=== PATIENT | male | born 1955 | race Caucasian/White ===

== ENCOUNTER → 2020-10-28 | Outpatient (CLI) | payer MEDICARE ==
--- NOTE | 2020-10-28 11:39 | XR ---
EXAMINATION TYPE: XR chest 2V DATE OF EXAM: 10/28/2020 COMPARISON: Chest x-ray April 27, 2017 HISTORY: Productive cough. TECHNIQUE: Frontal and lateral views of the chest are obtained. FINDINGS: There is mild chronic parenchymal changes bilaterally without suspicious new focal air spa ce opacity, pleural effusion, or pneumothorax seen. The cardiac silhouette size is within normal beltran its with atherosclerotic change aortic knob. Slight underlying scoliotic curvature. IMPRESSION: Chronic changes without acute pulmonary process.
== END | disposition home or self-care (01) ==
LOC: RADXRMAIN 11:22
PROVIDERS: ATTEND Internal Medicine
DX: R05 Cough (principal)
CPT/HCPCS: 71046

== ENCOUNTER 2020-11-16 18:48 | Emergency (ER) | payer MEDICARE ==
[2020-11-16] MEDS ORDERED: DIPH,PERTUS(ACELL)TETVAC-LF 0.5 ML VIAL IM ONE (19:35)
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
--- NOTE | 2020-11-16 20:17 | CT ---
EXAMINATION TYPE: CT brain cspine wo con DATE OF EXAM: 11/16/2020 COMPARISON: None available. HISTORY: Fall today with injury and possible LOC CT DLP: 1322.7 mGycm Automated exposure control for dose reduction was used. TECHNIQUE: CT scan of the head and cervical spine are performed without contrast. FINDINGS: There is small right temporal subdural hematoma, tracking along the tentorial leaflet. As sociated minimal pneumocephalus without obvious displaced calvarial fracture seen. No significant mas s effect, or midline shift identified. The ventricles and sulci are within normal limits in size. T he globes are intact and the visualized sinuses are clear. Cervical spine is visualized in its entirety from C1 through upper thoracic levels and demonstrates s atisfactory alignment without evidence of acute fracture or dislocation. Prevertebral soft tissue ap pears within normal limits. The C1-C2 articulation is unremarkable. IMPRESSION: Small right sided subdural hematoma with minimal pneumocephalus. No definitive calvarial fracture see n. No acute abnormality of the cervical spine. Critical finding was reported to caring physician by me at time of dictation.
--- NOTE | 2020-11-16 20:22 | XR ---
Result: History: Pain. Comparison: None available. Technique: Frontal, lateral and oblique views of the left elbow. Findings: Bone mineralization is appropriate for age. No acute fracture or dislocation is seen. The visualized osseous structures are in anatomic alignmen t. There are scattered mild degenerative changes. There is no significant elbow joint effusion. Impression: No acute fracture or dislocation.
--- NOTE | 2020-11-16 20:26 | XR ---
Result: Clinical History: Pain. Comparison: Chest radiographs 10/28/2020. Technique: 3 views of the left shoulder. Findings: The bone mineralization is appropriate for age. There is acute mildly displaced fracture of the left distal clavicle with possible intra-articular ex tension. No significant malalignment of the acromioclavicular joint. No evidence of dislocation. The visualized lung is clear. Impression: Left distal clavicle fracture.
[2020-11-16] MEDS ORDERED: MORPHINE SULFATE 4 MG/ML SYRINGE IVP STA ×2 (20:34→22:23)
[2020-11-16] MEDS ORDERED: ONDANSETRON 4 MG/2 ML VIAL IVP STA (20:34)
[2020-11-16 21:41] VITALS: RESP 18
[2020-11-16] MEDS ORDERED: cefTRIAXone IN SWFI 1,000 MG/10 ML SYRINGE IVP STA (22:05)
[2020-11-16] MEDS ORDERED: levETIRAcetam IV 1,000 MG in SALINE 1 100ML.BAG IVPB STA (22:05)
[2020-11-16 22:21] VITALS: BP 128/78; PULSE 82
[2020-11-16 22:51] VITALS: TEMP 98.2
== END 2020-11-16 23:01 | disposition other institution (70) ==
LOC: EC 18:48
DX: S42.032A Displaced fracture of lateral end of left clavicle, initial encounter for closed fracture (principal); S06.5X0A Traumatic subdural hemorrhage without loss of consciousness, initial encounter; S50.312A Abrasion of left elbow, initial encounter; J44.9 Chronic obstructive pulmonary disease, unspecified; I10 Essential (primary) hypertension; Z88.6 Allergy status to analgesic agent; Z79.899 Other long term (current) drug therapy; Z20.822 Contact with and (suspected) exposure to COVID-19; Z98.890 Other specified postprocedural states; V00.831A Fall from motorized mobility scooter, initial encounter; Y93.55 Activity, bike riding
CPT/HCPCS: 87635; 73030; 73080; 72125; 70450; 90715; 99285; 96365; 96375; 96376; 96372; J2270; J2405; J0696; J1953

== ENCOUNTER 2021-11-28 15:31 | Emergency (ER) | payer MEDICARE ==
[2021-11-28 16:34] VITALS: BP 133/92; PULSE 106; RESP 18; TEMP 98.1
--- NOTE | 2021-11-28 17:08 | ED ---
ENT HPI - General Chief complaint: Dental/Oral Stated complaint: spots on tongue Time Seen by Provider: 11/28/21 16:50 Source: patient Mode of arrival: ambulatory Limitations: no limitations - History of Present Illness Initial comments: Patient is a 66-year-old male who presents to the emergency department for evaluation of bumps on his tongue. Patient states he noticed the bumps on the back of his tongue last week. States they do not hurt. Denies fever, chills, tongue swelling, shortness of breath, chest pain, and other concerns. - Related Data Home Medications Medication Instructions Recorded Confirmed HYDROcodone/APAP 7.5-325MG [[place] 1 tab PO BID 01/30/14 11/16/20 7.5] Morphine Sulfate [Ms Contin] 60 mg PO Q12H 11/29/15 11/16/20 Metoprolol Succinate (ER) [Toprol 50 mg PO DAILY 04/27/17 11/16/20 Xl] Albuterol Sulfate [Ventolin HFA] 2 puff INHALATION RT-QID PRN 11/16/20 11/16/20 traZODone HCL 100 mg PO HS 11/16/20 11/16/20 Previous Rx's Medication Instructions Recorded Amoxicillin/Potassium Clav 1 tab PO Q12HR 7 Days #14 tab 09/28/21 [Augmentin 875-125 Tablet] Allergies Allergy/AdvReac Type Severity Reaction Status Date / Time celecoxib [From Celebrex] Allergy Swelling Verified 11/28/21 16:34 Review of Systems ROS Statement: Those systems with pertinent positive or pertinent negative responses have been documented in the HPI. ROS Other: All systems not noted in ROS Statement are negative. Past Medical History Past Medical History: COPD, Hypertension, Osteoarthritis (OA) Additional Past Medical History / Comment(s): chronic back pain-L4 degeneration History of Any Multi-Drug Resistant Organisms: None Reported Past Surgical History: Orthopedic Surgery Additional Past Surgical History / Comment(s): clavicle Past Anesthesia/Blood Transfusion Reactions: No Reported Reaction Past Psychological History: No Psychological Hx Reported Smoking Status: Never smoker Past Alcohol Use History: None Reported Past Drug Use History: None Reported - Past Family History Mother Family Medical History: Diabetes Mellitus Brother(s) Family Medical History: Diabetes Mellitus General Exam Limitations: no limitations General appearance: alert, in no apparent distress Head exam: Present: atraumatic, normocephalic, normal inspection Eye exam: Present: normal appearance, PERRL, EOMI. Absent: scleral icterus, conjunctival injection, periorbital swelling ENT exam: Present: normal oropharynx (prominent taste buds on back of tongue ), mucous membranes moist Neck exam: Present: normal inspection, full ROM. Absent: tenderness Respiratory exam: Present: normal lung sounds bilaterally. Absent: respiratory distress, wheezes, rales, rhonchi, stridor Cardiovascular Exam: Present: regular rate, normal rhythm, normal heart sounds. Absent: systolic murmur, diastolic murmur, rubs, gallop, clicks Neurological exam: Present: alert, oriented X3, CN II-XII intact Psychiatric exam: Present: normal affect, normal mood Course Vital Signs 11/28/21 16:32 Temperature 98.1 F Pulse Rate 106 H Respiratory 18 Rate Blood Pressure 133/92 O2 Sat by Pulse 96 Oximetry Medical Decision Making - Medical Decision Making This is a 66-year-old male who presents for evaluation of bumps on his tongue. Thorough history and examination were performed. Patient's throat and mouth inspected thoroughly. There are prominent taste buds located on the back of patient's tongue. The tongue is uniform in color with no overlying ab normalities. Patient reassured that the bumps on his tongue are taste buds. He will be discharged with instruction to follow-up with his primary care provider in one to 2 days. Return parameters discussed. Patient verbalizes understanding and is agreeable to this plan. Dr. Bowman is my attending. Disposition Clinical Impression: Tongue symptom Disposition: HOME SELF-CARE Condition: Good Additional Instructions: Please follow-up with primary care provider in one to 2 days. Return to the emergency department if you experience new, concerning, or worsening symptoms. Is patient prescribed a controlled substance at d/c from ED?: No Referrals: Aamir Parker MD [Primary Care Provider] - 1-2 days Time of Disposition: 17:08
== END 2021-11-28 17:18 | disposition home or self-care (01) ==
LOC: EC 15:31
DX: K13.70 Unspecified lesions of oral mucosa (principal); J44.9 Chronic obstructive pulmonary disease, unspecified; I10 Essential (primary) hypertension; Z88.6 Allergy status to analgesic agent
CPT/HCPCS: 99282

== ENCOUNTER 2021-11-28 20:56 | Inpatient (IN) | payer MEDICARE ==
[2021-11-28 21:16] LABS: Glucose,Whole Blood 553 mg/dL (70-110)
[2021-11-28 21:16] LABS: Glucose,Whole Blood 538 mg/dL (70-110)
[2021-11-28 21:58] LABS: Basophils # (A) 0.1 k/uL (0-0.2); Basophils % (A) 1 %; Eosinophils % (A) 0 %; HGB 15.5 gm/dL (13.0-17.5); Lymphocytes # (A) 1.1 k/uL (1.0-4.8); Lymphocytes % (A) 8 %; MCH 28.5 pg (25.0-35.0); MCHC 33.6 g/dL (31.0-37.0); MCV 84.6 fL (80.0-100.0); Mean Platelet Volume 8.1; Monocytes # (A) 0.5 k/uL (0-1.0); Monocytes % (A) 4 %; Neutrophils # (A) 11.7 k/uL (1.3-7.7); Neutrophils % (A) 86 %; Platelet Count 169 k/uL (150-450); RBC 5.44 m/uL (4.30-5.90); RDW 12.1 % (11.5-15.5); WBC 13.6 k/uL (3.8-10.6)
[2021-11-28] MEDS ORDERED: HYDROcodone/APAP 7.5-325MG 1 EACH TAB PO ONE (22:08)
[2021-11-28 22:11] LABS: ALT 47 U/L (4-49); AST 57 U/L (17-59); African American GFR (CKD) >90 (>60 ml/min/1.73 sqM); Albumin 4.3 g/dL (3.5-5.0); Alkaline Phosphatase 70 U/L (38-126); Anion Gap 18 mmol/L; Blood Urea Nitrogen 18 mg/dL (9-20); Calcium 8.4 mg/dL (8.4-10.2); Carbon Dioxide 18 mmol/L (22-30); Chloride 88 mmol/L (98-107); Non-African American GFR(CKD) >90 (>60 ml/min/1.73 sqM); Potassium 4.1 mmol/L (3.5-5.1); Sodium 124 mmol/L (137-145); Total Bilirubin 1.2 mg/dL (0.2-1.3); Total Protein 6.8 g/dL (6.3-8.2)
--- NOTE | 2021-11-28 22:11 | ED ---
Altered Mental Status HPI - General Chief Complaint: Altered Mental Status Stated Complaint: RECHECK Time Seen by Provider: 11/28/21 21:20 Source: patient, family Mode of arrival: wheelchair Limitations: no limitations - History of Present Illness Initial Comments: patient is a 66-year-old man who presents with complaint that he "can't stand up". Patient states that he has been having difficulty with balance this been going on for a week now. He is not note any inciting factors. He did not have any injury a week ago. He denies any focal weakness. No change in vision, speech MD Complaint: other Onset/Timin -: week(s) Consistency of Symptoms: constant Associated Symptoms: denies other symptoms - Related Data Home Medications Medication Instructions Recorded Confirmed HYDROcodone/APAP 7.5-325MG [[place] 1 tab PO BID 01/30/14 11/28/21 7.5-325] Morphine Sulfate [Ms Contin] 60 mg PO Q12H 11/29/15 11/28/21 Metoprolol Succinate (ER) [Toprol 50 mg PO DAILY 04/27/17 11/28/21 XL] traZODone HCL 100 mg PO HS 11/16/20 11/28/21 Previous Rx's Medication Instructions Recorded Amoxic-Pot Clav 875-125Mg 1 tab PO Q12HR 7 Days #14 tab 12/05/21 [Augmentin 875-125] INSULIN ASPART (NovoLOG) [NovoLOG 3 unit SQ ACHS 30 Days #5 each 12/05/21 (formulary)] Insulin Detemir (Levemir) [Levemir] 15 unit SQ DAILY 30 Days #5 each 12/05/21 Fluconazole [Diflucan] 100 mg PO DAILY 7 Days #7 tablet 12/07/21 Allergies Allergy/AdvReac Type Severity Reaction Status Date / Time celecoxib [From Celebrex] Allergy Swelling Verified 11/28/21 22:40 Review of Systems ROS Statement: Those systems with pertinent positive or pertinent negative responses have been documented in the HPI. ROS Other: All systems not noted in ROS Statement are negative. Constitutional: Denies: fever, chills, weakness Eyes: Denies: vision change Respiratory: Denies: cough, dyspnea, wheezes Cardiovascular: Denies: chest pain, palpitations Gastrointestinal: Denies: abdominal pain, vomiting, diarrhea Genitourinary: Denies: dysuria, hematuria Musculoskeletal: Denies: back pain Skin: Denies: rash Neurological: Reports: vertigo. Denies: headache, weakness, numbness, paresthesias Past Medical History Past Medical History: COPD, Hypertension, Osteoarthritis (OA) Additional Past Medical History / Comment(s): chronic back pain-L4 degeneration History of Any Multi-Drug Resistant Organisms: None Reported Past Surgical History: Orthopedic Surgery Additional Past Surgical History / Comment(s): clavicle Past Anesthesia/Blood Transfusion Reactions: No Reported Reaction Past Psychological History: No Psychological Hx Reported Smoking Status: Never smoker Past Alcohol Use History: None Reported Past Drug Use History: None Reported - Past Family History Mother Family Medical History: Diabetes Mellitus Brother(s) Family Medical History: Diabetes Mellitus General Exam Limitations: no limitations General appearance: alert, in no apparent distress Head exam: Present: atraumatic, normocephalic Eye exam: Present: normal appearance, PERRL, EOMI. Absent: scleral icterus, c onjunctival injection, nystagmus Neck exam: Present: normal inspection, full ROM Respiratory exam: Present: normal lung sounds bilaterally. Absent: respiratory distress, wheezes, rales, rhonchi, stridor Cardiovascular Exam: Present: regular rate, normal rhythm, normal heart sounds. Absent: systolic murmur, diastolic murmur, rubs, gallop GI/Abdominal exam: Present: soft. Absent: distended, tenderness, guarding, rebound, rigid, mass Extremities exam: Present: normal inspection, normal capillary refill. Absent: pedal edema, calf tenderness Back exam: Present: normal inspection. Absent: CVA tenderness (R), CVA tenderness (L) Neurological exam: Present: alert, oriented X3, CN II-XII intact. Absent: motor sensory deficit Skin exam: Present: warm, dry, intact, normal color. Absent: rash Course Vital Signs 11/28/21 11/29/21 11/29/21 21:10 00:50 03:40 Temperature 99.9 F H Pulse Rate 141 H 75 103 H Respiratory 20 18 18 Rate Blood Pressure 132/79 128/92 151/88 O2 Sat by Pulse 94 L 97 97 Oximetry 11/29/21 11/29/21 06:53 12:58 Temperature Pulse Rate 108 H 96 Respiratory 18 18 Rate Blood Pressure 133/89 129/84 O2 Sat by Pulse 95 98 Oximetry Medical Decision Making - Medical Decision Making Patient's 66-year-old man presenting with feeling of being off balance and difficulty ambulating. He is found to have significant hyperglycemia and appears to have pneumonia on the chest x-ray. Patient started on antibiotics, fluids, insulin and be admitted for further evaluation and treatment. - Lab Data Result diagrams: 12/03/21 06:25 12/05/21 10:08 Lab Results 11/28/21 11/28/21 11/28/21 Range/Units 21:12 21:15 21:35 WBC 13.6 H (3.8-10.6) k/uL RBC 5.44 (4.30-5.90) m/uL Hgb 15.5 (13.0-17.5) gm/dL Hct 46.0 (39.0-53.0) % MCV 84.6 (80.0-100.0) fL MCH 28.5 (25.0-35.0) pg MCHC 33.6 (31.0-37.0) g/dL RDW 12.1 (11.5-15.5) % Plt Count 169 (150-450) k/uL MPV 8.1 Neutrophils % 86 % Lymphocytes % 8 % Monocytes % 4 % Eosinophils % 0 % Basophils % 1 % Neutrophils # 11.7 H (1.3-7.7) k/uL Lymphocytes # 1.1 (1.0-4.8) k/uL Monocytes # 0.5 (0-1.0) k/uL Eosinophils # 0.0 (0-0.7) k/uL Basophils # 0.1 (0-0.2) k/uL PT (9.0-12.0) sec INR (<1.2) APTT (22.0-30.0) sec Sodium (137-145) mmol/L Potassium (3.5-5.1) mmol/L Chloride (98-107) mmol/L Carbon Dioxide (22-30) mmol/L Anion Gap mmol/L BUN (9-20) mg/dL Creatinine (0.66-1.25) mg/dL Est GFR (CKD-EPI)AfAm (>60 ml/min/1.73 sqM) Est GFR (CKD-EPI)NonAf (>60 ml/min/1.73 sqM) Glucose (74-99) mg/dL POC Glucose (mg/dL) 553 H 538 H (70-110) mg/dL POC Glu [facility] Tala Menezes Theresa Calcium (8.4-10.2) mg/dL Total Bilirubin (0.2-1.3) mg/dL AST (17-59) U/L ALT (4-49) U/L Alkaline Phosphatase (38-126) U/L Ammonia (<30) umol/L Troponin I (0.000-0.034) ng/mL NT-Pro-B Natriuret Pep pg/mL Total Protein (6.3-8.2) g/dL Albumin (3.5-5.0) g/dL Urine Color Urine Appearance (Clear) Urine pH (5.0-8.0) Ur Specific [place] (1.001-1.035) Urine Protein (Negative) Urine Glucose (UA) (Negative) Urine Ketones (Negative) Urine Blood (Negative) Urine Nitrite (Negative) Urine Bilirubin (Negative) Urine Urobilinogen (<2.0) mg/dL Ur Leukocyte Esterase (Negative) Urine RBC (0-5) /hpf Urine WBC (0-5) /hpf Urine Mucus (None) /hpf Urine Opiates Screen (NotDetected) Ur Oxycodone Screen (NotDetected) Urine Methadone Screen (NotDetected) Ur Propoxyphene Screen (NotDetected) Ur Barbiturates Screen (NotDetected) U Tricyclic Antidepress (NotDetected) Ur Phencyclidine Scrn (NotDetected) Ur Amphetamines Screen (NotDetected) U Methamphetamines Scrn (NotDetected) U Benzodiazepines Scrn (NotDetected) Urine Cocaine Screen (NotDetected) U Marijuana (THC) Screen (NotDetected) Serum Alcohol mg/dL 11/28/21 11/28/21 11/28/21 Range/Units 21:35 21:35 21:35 WBC (3.8-10.6) k/uL RBC (4.30-5.90) m/uL Hgb (13.0-17.5) gm/dL Hct (39.0-53.0) % MCV (80.0-100.0) fL MCH (25.0-35.0) pg MCHC (31.0-37.0) g/dL RDW (11.5-15.5) % Plt Count (150-450) k/uL MPV Neutrophils % % Lymphocytes % % Monocytes % % Eosinophils % % Basophils % % Neutrophils # (1.3-7.7) k/uL Lymphocytes # (1.0-4.8) k/uL Monocytes # (0-1.0) k/uL Eosinophils # (0-0.7) k/uL Basophils # (0-0.2) k/uL PT 12.4 H (9.0-12.0) sec INR 1.2 H (<1.2) APTT 27.2 (22.0-30.0) sec Sodium 124 L (137-145) mmol/L Potassium 4.1 (3.5-5.1) mmol/L Chloride 88 L (98-107) mmol/L Carbon Dioxide 18 L (22-30) mmol/L Anion Gap 18 mmol/L BUN 18 (9-20) mg/dL Creatinine 0.86 (0.66-1.25) mg/dL Est GFR (CKD-EPI)AfAm >90 (>60 ml/min/1.73 sqM) Est GFR (CKD-EPI)NonAf >90 (>60 ml/min/1.73 sqM) Glucose 548 H* (74-99) mg/dL POC Glucose (mg/dL) (70-110) mg/dL POC Glu [facility] ID Calcium 8.4 (8.4-10.2) mg/dL Total Bilirubin 1.2 (0.2-1.3) mg/dL AST 57 (17-59) U/L ALT 47 (4-49) U/L Alkaline Phosphatase 70 (38-126) U/L Ammonia (<30) umol/L Troponin I <0.012 (0.000-0.034) ng/mL NT-Pro-B Natriuret Pep pg/mL Total Protein 6.8 (6.3-8.2) g/dL Albumin 4.3 (3.5-5.0) g/dL Urine Color Urine Appearance (Clear) Urine pH (5.0-8.0) Ur Specific [place] (1.001-1.035) Urine Protein (Negative) Urine Glucose (UA) (Negative) Urine Ketones (Negative) Urine Blood (Negative) Urine Nitrite (Negative) Urine Bilirubin (Negative) Urine Urobilinogen (<2.0) mg/dL Ur Leukocyte Esterase (Negative) Urine RBC (0-5) /hpf Urine WBC (0-5) /hpf Urine Mucus (None) /hpf Urine Opiates Screen (NotDetected) Ur Oxycodone Screen (NotDetected) Urine Methadone Screen (NotDetected) Ur Propoxyphene Screen (NotDetected) Ur Barbiturates Screen (NotDetected) U Tricyclic Antidepress (NotDetected) Ur Phencyclidine Scrn (NotDetected) Ur Amphetamines Screen (NotDetected) U Methamphetamines Scrn (NotDetected) U Benzodiazepines Scrn (NotDetected) Urine Cocaine Screen (NotDetected) U Marijuana (THC) Screen (NotDetected) Serum Alcohol <10 mg/dL 11/28/21 11/28/21 11/29/21 Range/Units 21:35 21:35 00:35 WBC (3.8-10.6) k/uL RBC (4.30-5.90) m/uL Hgb (13.0-17.5) gm/dL Hct (39.0-53.0) % MCV (80.0-100.0) fL MCH (25.0-35.0) pg MCHC (31.0-37.0) g/dL RDW (11.5-15.5) % Plt Count (150-450) k/uL MPV Neutrophils % % Lymphocytes % % Monocytes % % Eosinophils % % Basophils % % Neutrophils # (1.3-7.7) k/uL Lymphocytes # (1.0-4.8) k/uL Monocytes # (0-1.0) k/uL Eosinophils # (0-0.7) k/uL Basophils # (0-0.2) k/uL PT (9.0-12.0) sec INR (<1.2) APTT (22.0-30.0) sec Sodium (137-145) mmol/L Potassium (3.5-5.1) mmol/L Chloride (98-107) mmol/L Carbon Dioxide (22-30) mmol/L Anion Gap mmol/L BUN (9-20) mg/dL Creatinine (0.66-1.25) mg/dL Est GFR (CKD-EPI)AfAm (>60 ml/min/1.73 sqM) Est GFR (CKD-EPI)NonAf (>60 ml/min/1.73 sqM) Glucose (74-99) mg/dL POC Glucose (mg/dL) (70-110) mg/dL POC Glu [facility] ID Calcium (8.4-10.2) mg/dL Total Bilirubin (0.2-1.3) mg/dL AST (17-59) U/L ALT (4-49) U/L Alkaline Phosphatase (38-126) U/L Ammonia 15 (<30) umol/L Troponin I (0.000-0.034) ng/mL NT-Pro-B Natriuret Pep 303 pg/mL Total Protein (6.3-8.2) g/dL Albumin (3.5-5.0) g/dL Urine Color Yellow Urine Appearance Clear (Clear) Urine pH 5.5 (5.0-8.0) Ur Specific [place] 1.030 (1.001-1.035) Urine Protein 1+ H (Negative) Urine Glucose (UA) 4+ H (Negative) Urine Ketones 2+ H (Negative) Urine Blood Moderate H (Negative) Urine Nitrite Negative (Negative) Urine Bilirubin Negative (Negative) Urine Urobilinogen <2.0 (<2.0) mg/dL Ur Leukocyte Esterase Negative (Negative) Urine RBC 1 (0-5) /hpf Urine WBC 1 (0-5) /hpf Urine Mucus Rare H (None) /hpf Urine Opiates Screen Detected H (NotDetected) Ur Oxycodone Screen Not Detected (NotDetected) Urine Methadone Screen Not Detected (NotDetected) Ur Propoxyphene Screen Not Detected (NotDetected) Ur Barbiturates Screen Not Detected (NotDetected) U Tricyclic Antidepress Not Detected (NotDetected) Ur Phencyclidine Scrn Not Detected (NotDetected) Ur Amphetamines Screen Not Detected (NotDetected) U Methamphetamines Scrn Not Detected (NotDetected) U Benzodiazepines Scrn Not Detected (NotDetected) Urine Cocaine Screen Not Detected (NotDetected) U Marijuana (THC) Screen Detected H (NotDetected) Serum Alcohol mg/dL 11/29/21 Range/Units 01:15 WBC (3.8-10.6) k/uL RBC (4.30-5.90) m/uL Hgb (13.0-17.5) gm/dL Hct (39.0-53.0) % MCV (80.0-100.0) fL MCH (25.0-35.0) pg MCHC (31.0-37.0) g/dL RDW (11.5-15.5) % Plt Count (150-450) k/uL MPV Neutrophils % % Lymphocytes % % Monocytes % % Eosinophils % % Basophils % % Neutrophils # (1.3-7.7) k/uL Lymphocytes # (1.0-4.8) k/uL Monocytes # (0-1.0) k/uL Eosinophils # (0-0.7) k/uL Basophils # (0-0.2) k/uL PT (9.0-12.0) sec INR (<1.2) APTT (22.0-30.0) sec Sodium (137-145) mmol/L Potassium (3.5-5.1) mmol/L Chloride (98-107) mmol/L Carbon Dioxide (22-30) mmol/L Anion Gap mmol/L BUN (9-20) mg/dL Creatinine (0.66-1.25) mg/dL Est GFR (CKD-EPI)AfAm (>60 ml/min/1.73 sqM) Est GFR (CKD-EPI)NonAf (>60 ml/min/1.73 sqM) Glucose (74-99) mg/dL POC Glucose (mg/dL) 436 H (70-110) mg/dL POC Glu [facility] ID Melville, Luis Felipe Calcium (8.4-10.2) mg/dL Total Bilirubin (0.2-1.3) mg/dL AST (17-59) U/L ALT (4-49) U/L Alkaline Phosphatase (38-126) U/L Ammonia (<30) umol/L Troponin I (0.000-0.034) ng/mL NT-Pro-B Natriuret Pep pg/mL Total Protein (6.3-8.2) g/dL Albumin (3.5-5.0) g/dL Urine Color Urine Appearance (Clear) Urine pH (5.0-8.0) Ur Specific [place] (1.001-1.035) Urine Protein (Negative) Urine Glucose (UA) (Negative) Urine Ketones (Negative) Urine Blood (Negative) Urine Nitrite (Negative) Urine Bilirubin (Negative) Urine Urobilinogen (<2.0) mg/dL Ur Leukocyte Esterase (Negative) Urine RBC (0-5) /hpf Urine WBC (0-5) /hpf Urine Mucus (None) /hpf Urine Opiates Screen (NotDetected) Ur Oxycodone Screen (NotDetected) Urine Methadone Screen (NotDetected) Ur Propoxyphene Screen (NotDetected) Ur Barbiturates Screen (NotDetected) U Tricyclic Antidepress (NotDetected) Ur Phencyclidine Scrn (NotDetected) Ur Amphetamines Screen (NotDetected) U Methamphetamines Scrn (NotDetected) U Benzodiazepines Scrn (NotDetected) Urine Cocaine Screen (NotDetected) U Marijuana (THC) Screen (NotDetected) Serum Alcohol mg/dL - EKG Data EKG shows normal: sinus rhythm, axis (normal), intervals (normal), QRS complexes (normal), ST-T waves (normal) Rate: tachycardia (rate 120 bpm) Disposition Clinical Impression: Pneumonia, DM complication NOS type II, uncontrolled Disposition: ADMITTED IP TO THIS [facility] Condition: Stable Is patient prescribed a controlled substance at d/c from ED?: No
[2021-11-28 22:13] LABS: Glucose 548 mg/dL (74-99)
[2021-11-28 22:14] LABS: Alcohol <10 mg/dL
[2021-11-28 22:21] LABS: INR 1.2 (<1.2); Partial Thromboplastin Time 27.2 sec (22.0-30.0); Prothrombin Time 12.4 sec (9.0-12.0)
--- NOTE | 2021-11-28 22:24 | XR ---
EXAMINATION TYPE: XR chest 1V portable DATE OF EXAM: 11/28/2021 COMPARISON: 10/28/2020 HISTORY: Altered mental status TECHNIQUE: FINDINGS: Heart is normal. There is some airspace infiltrate at the inferior left pulmonary hilum in the left lower lobe. The other lung ayon are clear. Mediastinum is normal. No pleural effusion. IMPRESSION: There is some left lower lobe pneumonia which appears new compared to old exam. No heart failure.
--- NOTE | 2021-11-28 22:39 | CT ---
EXAMINATION TYPE: CT brain wo con DATE OF EXAM: 11/28/2021 COMPARISON: 11/16/2020 HISTORY: ams CT DLP: 1141.4 mGycm Automated exposure control for dose reduction was used. Ventricles have normal size. There is no mass effect or midline shift. No sign of intracranial hemorr uriel. Calvarium is intact. IMPRESSION: Normal unenhanced head CT scan. There is clearing of the subdural hemorrhage over the right temporal lobe compared to old exam.
[2021-11-29 01:01] LABS: Appearance,Urine Clear (Clear); Bilirubin,Urine Negative (Negative); Blood,Urine Moderate (Negative); Color,Urine Yellow; Glucose,Urine (UA) 4+ (Negative); Leukocyte Esterase,Urine Negative (Negative); Mucus,Urine Rare /hpf; Nitrite,Urine Negative (Negative); PH, Urine 5.5 (5.0-8.0); Protein,Urine 1+ (Negative); RBC,Urine 1 /hpf (0-5); Urobilinogen,Urine <2.0 mg/dL (<2.0); WBC,Urine 1 /hpf (0-5)
[2021-11-29 01:10] LABS: Ketones,Urine 2+ (Negative)
[2021-11-29] MEDS ORDERED: SODIUM CHLORIDE 0.9% 1,000 ML IV ONE (01:14)
[2021-11-29] MEDS ORDERED: INSULIN REGULAR 100 UNIT/ML VIAL (IV) IV STA (01:14)
[2021-11-29] MEDS ORDERED: SODIUM CHLORIDE 0.9% 1,000 ML IV STA (01:14)
[2021-11-29] MEDS ORDERED: AZITHROMYCIN 500 MG TAB PO STA (01:15)
[2021-11-29 01:17] LABS: Amphetamine Screen,Urine Not Detected (NotDetected); Barbiturate Screen,Urine Not Detected (NotDetected); Benzodiazepines Screen,Urine Not Detected (NotDetected); Cocaine Screen,Urine Not Detected (NotDetected); Methadone Screen, Urine Not Detected (NotDetected); Opiate Screen,Urine Detected (NotDetected); Oxycodone Screen, Urine Not Detected (NotDetected); Phencyclidine Screen,Urine Not Detected (NotDetected); Tricyclic Antidepressant,Urine Not Detected (NotDetected); Urn Cannabinoid Scrn Detected (NotDetected)
[2021-11-29 01:17] LABS: Glucose,Whole Blood 436 mg/dL (70-110)
[2021-11-29] MEDS ORDERED: NALOXONE 0.4 MG/ML 1 ML VIAL IV PRN (01:17)
[2021-11-29] MEDS: MORPHINE SULFATE ER 60 MG TABLET PO SCH ×2 (01:57→13:55)
[2021-11-29 06:45] LABS: Glucose,Whole Blood 295 mg/dL (70-110)
[2021-11-29] MEDS: METOPROLOL SUCCINATE (ER) 50 MG TAB.ER.24H PO SCH (07:54)
[2021-11-29] MEDS: FAMOTIDINE 20 MG TAB PO SCH ×2 (07:54→21:06)
[2021-11-29] MEDS: HYDROcodone/APAP 7.5-325MG 1 EACH TAB PO SCH ×2 (07:54→21:05)
[2021-11-29 09:56] LABS: Basophils # (A) 0.1 k/uL (0-0.2); Basophils % (A) 0 %; Eosinophils # (A) 0.1 k/uL (0-0.7); Eosinophils % (A) 0 %; HCT 41.7 % (39.0-53.0); HGB 14.7 gm/dL (13.0-17.5); Lymphocytes # (A) 1.1 k/uL (1.0-4.8); Lymphocytes % (A) 8 %; MCH 29.1 pg (25.0-35.0); MCHC 35.3 g/dL (31.0-37.0); MCV 82.4 fL (80.0-100.0); Mean Platelet Volume 7.9; Monocytes # (A) 0.4 k/uL (0-1.0); Monocytes % (A) 3 %; Neutrophils # (A) 12.2 k/uL (1.3-7.7); Neutrophils % (A) 88 %; Platelet Count 163 k/uL (150-450); RBC 5.06 m/uL (4.30-5.90); WBC 13.9 k/uL (3.8-10.6)
[2021-11-29 10:09] LABS: African American GFR (CKD) >90 (>60 ml/min/1.73 sqM); Anion Gap 14 mmol/L; Blood Urea Nitrogen 14 mg/dL (9-20); Calcium 7.9 mg/dL (8.4-10.2); Carbon Dioxide 19 mmol/L (22-30); Chloride 94 mmol/L (98-107); Glucose 306 mg/dL (74-99); Non-African American GFR(CKD) >90 (>60 ml/min/1.73 sqM); Potassium 3.9 mmol/L (3.5-5.1); Sodium 127 mmol/L (137-145)
[2021-11-29 12:42] LABS: Glucose,Whole Blood 304 mg/dL (70-110)
[2021-11-29] MEDS: INSULIN ASPART (NovoLOG) 100 UNIT/ML VIAL SQ SCH ×3 (12:52→21:06)
[2021-11-29] MEDS: SODIUM CHLORIDE 0.9% 1,000 ML IV SCH ×2 (12:53→23:35)
[2021-11-29] MEDS: INSULIN DETEMIR (LEVEMIR) 100 UNIT/ML SYR SQ SCH (14:09)
--- NOTE | 2021-11-29 14:36 | P.HPIM ---
History of Present Illness H&P Date: 11/29/21 This is a 66-year-old male who presented to the emergency department with increasing weakness and patient reports to having falls more frequently over the last week or so and came to the ER for further evaluation. Patient reports his weakness became so severe he was unable to stand up. Patient denies any previous injury and has been falling more frequently. Patient follows with Dr. Parker in the outpatient setting and has a past medical history of COPD, hypertension, osteoarthritis and chronic back pain and reports to being on a pain contract with Dr. Aldridge with morphine. Patient underwent CT of the brain which showed a normal unenhanced head CT and clearing of a subdural hemorrhage over the right temporal lobe compared to old exam. Looking back further into the chart on November 162020 patient did have a fall with injury and possible LOC and there was a small right-sided subdural hematoma with minimal pneumocephalus and no definitive calvarial fracture noted with no acute abnorma lity of the cervical spine. EKG showed sinus tachycardia with a heart rate of 120. Patient was admitted for new onset diabetes with blood sugars over 600. Patient was given a dose of IV insulin and will initiate sliding scale along with Accu-Cheks before meals and at bedtime and obtain a hemoglobin A1c. Patient was also found to be febrile at 99.9 and currently 94% on room air. Patient was given a dose of Zithromax and ceftriaxone and also IV fluids. Patient denies tobacco use and denies recent marijuana use although urine was positive for marijuana and opiates. Patient does have a pain contract with pain management and receives morphine for chronic back pain. Patient does admit to e xcessive thirst with polyuria and polydipsia and did have occasional nausea and vomiting over the last week. COVID-19 was negative. Labs: WBC on admission was 13.6 with a hemoglobin of 15.5 and platelets were 169, INR was 1.2, sodium is 124 with a potassium of 4.1, carbon dioxide was 18 and chlor john was 88, anion gap was 18 and BUN is 18 with a creatinine of 0.86 and blood sugar was 548. Total bilirubin 1.2, troponin was negative, BNP was 303, urine was positive for proteins glucose and ketones and acetone was also positive. COVID-19 was negative Review Of Systems: Constitutional: Reports fever, no chills, no night sweats. No weight change. Reports weakness and more frequent falling, No daytime sleepiness. EENT: No headache. No blurred vision or double vision, no loss of vision. No loss of Hearing, no ringing in the ears, no dizziness. No nasal drainage or congestion. No epistaxis. No sore throat. Lungs: No shortness of breath, reports chronic cough, no sputum production. No wheezing. Cardiovascular: No chest pain, no lower extremity edema. No palpitations. No paroxysmal nocturnal dyspnea. No orthopnea. No lightheadedness or dizziness. No syncopal episodes. Abdominal: No abdominal pain. Reports nausea and vomiting. No diarrhea. No constipation. No bloody or tarry stools.. No loss of appetite. Reports excessive drinking of water Genitourinary: No dysuria, increased frequency, urgency. No urinary retention. Reports polyuria Musculoskeletal: Reports chronic myalgias. No muscle weakness, reports gait dysfunction, reports frequent falls. Reports chronic back pain. No neck pain. Integumentary: No wounds, no lesions. No rash or pruritus. No unusual bruising. No change in hair or nails. Neurologic: No aphasia. No facial droop. No change in mentation. No head injury. No headache. No paralysis. No paresthesia. Psychiatric: No depression. No anxiety. No mood swings. Endocrine: Reports abnormal blood sugars. No weight change. Report excessive sweating or thirst. No cold intolerance. PHYSICAL EXAMINATION: GENERAL: The patient is alert and oriented x4, thin built HEENT: Pupils are round and equally reacting to light. EOMI. no scleral icterus. No conjunctival pallor. Normocephalic, atraumatic. No pharyngeal erythema. No thyromegaly. Oral mucosa is dry CARDIOVASCULAR: S1 and S2 muffled PULMONARY: diminished breath sounds bilaterally with no wheezing or rhonchi noted. ABDOMEN: soft. Nontender on exam. non-distended, normoactive bowel sounds. No palpable organomegaly. MUSCULOSKELETAL: No joint swelling or deformity. EXTREMITIES: No cyanosis, clubbing, or pedal edema. NEUROLOGICAL: Gross neurological examination did not reveal any focal deficits. Diffuse weakness SKIN: No rashes. Assessment: Elevated blood sugars, new onset diabetes mellitus, uncontrolled with hyperglycemia Hypertension Ali area, polydipsia COPD, not in exacerbation Fevers with mild leukocytosis of unknown origin most likely secondary to Mild DKA Hyponatremia, possibly hypovolemic hyponatremia Secondary to excessive polydipsia Osteoarthritis Chronic back pain on pain management contract Positive marijuana on urine drug screen GI prophylaxis DVT prophylaxis Full code Plan: Recommend to continue with current medications and will initiate sliding scale along with Accu-Cheks before meals and at bedtime. Hemoglobin A1c was ordered and pending. Will discuss with case management and social work about diabetic supplies and will need outpatient follow-up. Will refer to endocrine on discharge. Patient has also been having increasing weakness and more frequent falls and will have physical therapy evaluate the patient. Patient does have a pain management contract with Dr. Aldridge and is on chronic oral morphine. Consult dietitian for diabetes education. Case management also notified as patient is anxious to go home and will be initiating insulin and will need a glucometer with testing supplies. The impression and plan of care has been dictated by Lyn Alcala, nurse practitioner as directed. Dr. Cami MD I have performed a history and examination and MDM of this patient, discussed the same with the dictator, and agree with the dictator's assessment and plan as written ,documented as a scribe. Based on total visit time, I have performed more than 50% of the visit. Any additional findings or plans will be noted. Past Medical History Past Medical History: COPD, Hypertension, Osteoarthritis (OA) Additional Past Medical History / Comment(s): chronic back pain-L4 degeneration History of Any Multi-Drug Resistant Organisms: None Reported Past Surgical History: Orthopedic Surgery Additional Past Surgical History / Comment(s): clavicle Past Anesthesia/Blood Transfusion Reactions: No Reported Reaction Past Psychological History: No Psychological Hx Reported Smoking Status: Never smoker Past Alcohol Use History: None Reported Past Drug Use History: None Reported - Past Family History Mother Family Medical History: Diabetes Mellitus Brother(s) Family Medical History: Diabetes Mellitus Medications and Allergies Home Medications Medication Instructions Recorded Confirmed Type HYDROcodone/APAP 7.5-325MG [[place] 1 tab PO BID 01/30/14 11/28/21 History 7.5-325] Morphine Sulfate [Ms Contin] 60 mg PO Q12H 11/29/15 11/28/21 History Metoprolol Succinate (ER) [Toprol 50 mg PO DAILY 04/27/17 11/28/21 History XL] traZODone HCL 100 mg PO HS 11/16/20 11/28/21 History INSULIN ASPART (NovoLOG) [NovoLOG 5 unit SQ ACHS 30 Days #5 each 11/29/21 Rx (formulary)] Insulin Detemir (Levemir) [Levemir] 10 unit SQ DAILY@0700 30 Days #4 11/29/21 Rx each Allergies Allergy/AdvReac Type Severity Reaction Status Date / Time celecoxib [From Celebrex] Allergy Swelling Verified 11/28/21 22:40 Physical Exam Vitals: Vital Signs Temp Pulse Resp BP Pulse Ox 11/29/21 06:53 108 H 18 133/89 95 11/29/21 03:40 103 H 18 151/88 97 11/29/21 00:50 75 18 128/92 97 11/28/21 21:10 99.9 F H 141 H 20 132/79 94 L Intake and Output 11/28/21 11/29/21 11/29/21 22:59 06:59 14:59 Other: Weight 68.039 kg Results CBC & Chem 7: 11/29/21 09:36 11/29/21 09:36 Labs: Abnormal Lab Results - Last 24 Hours (Table) 11/28/21 11/28/21 11/28/21 Range/Units 21:12 21:15 21:35 WBC 13.6 H (3.8-10.6) k/uL Neutrophils # 11.7 H (1.3-7.7) k/uL PT (9.0-12.0) sec INR (<1.2) Sodium (137-145) mmol/L Chloride (98-107) mmol/L Carbon Dioxide (22-30) mmol/L Glucose (74-99) mg/dL POC Glucose (mg/dL) 553 H 538 H (70-110) mg/dL Urine Protein (Negative) Urine Glucose (UA) (Negative) Urine Ketones (Negative) Urine Blood (Negative) Urine Mucus (None) /hpf Urine Opiates Screen (NotDetected) U Marijuana (THC) Screen (NotDetected) 11/28/21 11/28/21 11/29/21 Range/Units 21:35 21:35 00:35 WBC (3.8-10.6) k/uL Neutrophils # (1.3-7.7) k/uL PT 12.4 H (9.0-12.0) sec INR 1.2 H (<1.2) Sodium 124 L (137-145) mmol/L Chloride 88 L (98-107) mmol/L Carbon Dioxide 18 L (22-30) mmol/L Glucose 548 H* (74-99) mg/dL POC Glucose (mg/dL) (70-110) mg/dL Urine Protein 1+ H (Negative) Urine Glucose (UA) 4+ H (Negative) Urine Ketones 2+ H (Negative) Urine Blood Moderate H (Negative) Urine Mucus Rare H (None) /hpf Urine Opiates Screen Detected H (NotDetected) U Marijuana (THC) Screen Detected H (NotDetected) 11/29/21 11/29/21 Range/Units 01:15 06:43 WBC (3.8-10.6) k/uL Neutrophils # (1.3-7.7) k/uL PT (9.0-12.0) sec INR (<1.2) Sodium (137-145) mmol/L Chloride (98-107) mmol/L Carbon Dioxide (22-30) mmol/L Glucose (74-99) mg/dL POC Glucose (mg/dL) 436 H 295 H (70-110) mg/dL Urine Protein (Negative) Urine Glucose (UA) (Negative) Urine Ketones (Negative) Urine Blood (Negative) Urine Mucus (None) /hpf Urine Opiates Screen (NotDetected) U Marijuana (THC) Screen (NotDetected)
[2021-11-29] MEDS: ACETAMINOPHEN TAB 325 MG TAB PO PRN (15:09)
[2021-11-29 16:43] LABS: Glucose,Whole Blood 264 mg/dL (70-110)
[2021-11-29 18:26] LABS: Glucose,Whole Blood 299 mg/dL (70-110)
[2021-11-29 20:24] LABS: Glucose,Whole Blood 241 mg/dL (70-110)
[2021-11-29] MEDS: traZODone HCL 100 MG TAB PO SCH (21:05)
[2021-11-30] MEDS: ACETAMINOPHEN TAB 325 MG TAB PO PRN ×3 (00:51→14:07)
[2021-11-30] MEDS: MORPHINE SULFATE ER 60 MG TABLET PO SCH ×2 (00:51→13:09)
[2021-11-30 00:56] LABS: Glucose,Whole Blood 201 mg/dL (70-110)
[2021-11-30 02:04] LABS: Glucose,Whole Blood 175 mg/dL (70-110)
[2021-11-30 07:05] LABS: Glucose,Whole Blood 132 mg/dL (70-110)
[2021-11-30] MEDS: METOPROLOL SUCCINATE (ER) 50 MG TAB.ER.24H PO SCH (07:54)
[2021-11-30] MEDS: HYDROcodone/APAP 7.5-325MG 1 EACH TAB PO SCH ×2 (07:54→20:40)
[2021-11-30] MEDS: FAMOTIDINE 20 MG TAB PO SCH ×2 (07:54→20:40)
[2021-11-30] MEDS: INSULIN DETEMIR (LEVEMIR) 100 UNIT/ML SYR SQ SCH (07:55)
[2021-11-30] MEDS: INSULIN ASPART (NovoLOG) 100 UNIT/ML VIAL SQ SCH ×4 (07:55→20:40)
[2021-11-30] MEDS: SODIUM CHLORIDE 0.9% 1,000 ML IV SCH ×2 (07:57→20:31)
[2021-11-30] MEDS ORDERED: PIPERACILLIN-TAZOBACTAM 3.375 GM in SODIUM CHLORIDE 0.9% 100 ML IVPB SCH (09:30)
--- NOTE | 2021-11-30 09:58 | XR ---
EXAMINATION TYPE: XR chest 2V DATE OF EXAM: 11/30/2021 COMPARISON: NONE HISTORY: Shortness of breath TECHNIQUE: Frontal and lateral views of the chest are obtained. FINDINGS: Scattered senescent parenchymal changes noted. Hyperinflation compatible with COPD. There is left lower lobe masslike infiltrate noted. This could reflect pneumonia however underlying m ass is not excluded. Correlate clinically and follow-up until resolution is recommended. Heart size is stable. Mediastinal structures are stable and grossly unremarkable. No evidence for hilar prominence. Degenerative changes dorsal spine. IMPRESSION: 1. There is left lower lobe masslike infiltrate noted. This could reflect pneumonia however underlyin g mass is not excluded. Correlate clinically and follow-up until resolution is recommended.
[2021-11-30 11:42] LABS: Glucose,Whole Blood 157 mg/dL (70-110)
[2021-11-30 12:52] VITALS: BMI 25.7
[2021-11-30] MEDS: AZITHROMYCIN 500 MG TAB PO SCH (13:09)
[2021-11-30] MEDS: ONDANSETRON 4 MG/2 ML VIAL IVP PRN (15:42)
[2021-11-30 15:58] LABS: Appearance,Urine Clear (Clear); Bilirubin,Urine Negative (Negative); Blood,Urine Negative (Negative); Color,Urine Yellow; Glucose,Urine (UA) 3+ (Negative); Ketones,Urine 1+ (Negative); Leukocyte Esterase,Urine Negative (Negative); Mucus,Urine Rare /hpf; Nitrite,Urine Negative (Negative); Protein,Urine 1+ (Negative); RBC,Urine 1 /hpf (0-5); Specific Gravity,Urine 1.016 (1.001-1.035); Urobilinogen,Urine <2.0 mg/dL (<2.0); WBC,Urine 2 /hpf (0-5)
[2021-11-30] MEDS: ALBUTEROL NEBULIZED 2.5 MG/3 ML INHALATION SCH ×2 (16:08→19:57)
[2021-11-30 16:41] LABS: Glucose,Whole Blood 80 mg/dL (70-110)
[2021-11-30 20:37] LABS: Glucose,Whole Blood 196 mg/dL (70-110)
[2021-11-30] MEDS: traZODone HCL 100 MG TAB PO SCH (20:40)
[2021-12-01 02:28] LABS: Glucose,Whole Blood 150 mg/dL (70-110)
[2021-12-01] MEDS: ACETAMINOPHEN TAB 325 MG TAB PO PRN (02:30)
[2021-12-01] MEDS: MORPHINE SULFATE ER 60 MG TABLET PO SCH ×2 (02:31→13:39)
[2021-12-01 06:44] LABS: Glucose,Whole Blood 149 mg/dL (70-110)
[2021-12-01] MEDS: INSULIN ASPART (NovoLOG) 100 UNIT/ML VIAL SQ SCH ×4 (07:52→21:58)
[2021-12-01] MEDS: INSULIN DETEMIR (LEVEMIR) 100 UNIT/ML SYR SQ SCH (07:52)
[2021-12-01 07:57] LABS: Basophils % (A) 0 %; Eosinophils % (A) 0 %; HCT 37.4 % (39.0-53.0); HGB 12.8 gm/dL (13.0-17.5); Lymphocytes # (A) 1.3 k/uL (1.0-4.8); Lymphocytes % (A) 16 %; MCH 28.5 pg (25.0-35.0); MCHC 34.3 g/dL (31.0-37.0); MCV 83.1 fL (80.0-100.0); Mean Platelet Volume 7.9; Monocytes # (A) 0.2 k/uL (0-1.0); Monocytes % (A) 3 %; Neutrophils # (A) 6.5 k/uL (1.3-7.7); Neutrophils % (A) 81 %; Platelet Count 145 k/uL (150-450); RDW 12.3 % (11.5-15.5); WBC 8.1 k/uL (3.8-10.6)
[2021-12-01] MEDS: ALBUTEROL NEBULIZED 2.5 MG/3 ML INHALATION SCH ×4 (08:00→20:20)
[2021-12-01 08:12] LABS: African American GFR (CKD) >90 (>60 ml/min/1.73 sqM); Anion Gap 6 mmol/L; Blood Urea Nitrogen 8 mg/dL (9-20); Calcium 7.3 mg/dL (8.4-10.2); Carbon Dioxide 27 mmol/L (22-30); Chloride 102 mmol/L (98-107); Glucose 153 mg/dL (74-99); Non-African American GFR(CKD) >90 (>60 ml/min/1.73 sqM); Potassium 3.8 mmol/L (3.5-5.1); Sodium 135 mmol/L (137-145)
[2021-12-01] MEDS: SODIUM CHLORIDE 0.9% 1,000 ML IV SCH (08:33)
[2021-12-01] MEDS: HYDROcodone/APAP 7.5-325MG 1 EACH TAB PO SCH ×2 (08:33→21:57)
[2021-12-01] MEDS: FAMOTIDINE 20 MG TAB PO SCH ×2 (08:33→21:57)
[2021-12-01] MEDS: METOPROLOL SUCCINATE (ER) 50 MG TAB.ER.24H PO SCH (08:33)
[2021-12-01] MEDS: AZITHROMYCIN 500 MG TAB PO SCH (08:33)
--- NOTE | 2021-12-01 08:55 | P.PN ---
Subjective Progress Note Date: 11/30/21 This is a 66-year-old male who presented to the emergency department with increasing weakness and patient reports to having falls more frequently over the last week or so and came to the ER for further evaluation. Patient reports his weakness became so severe he was unable to stand up. Patient denies any previous injury and has been falling more frequently. Patient follows with Dr. Parker in the outpatient setting and has a past medical history of COPD, hypertension, osteoarthritis and chronic back pain and reports to being on a pain contract with Dr. Aldridge with morphine. Patient underwent CT of the brain which showed a normal unenhanced head CT and clearing of a subdural hemorrhage over the right temporal lobe compared to old exam. Looking back further into the chart on November 162020 patient did have a fall with injury and possible LOC and there was a small right-sided subdural hematoma with minimal pneumocephalus and no definitive calvarial fracture noted with no acute abnormality of the cervical spine. EKG showed sinus tachycardia with a heart rate of 120. Patient was admitted for new onset diabetes with blood sugars over 600. Patient was given a dose of IV insulin and will initiate sliding scale along with Accu-Cheks before meals and at bedtime and obtain a hemoglobin A1c. Patient was also found to be febrile at 99.9 and currently 94% on room air. Patient was given a dose of Zithromax and ceftriaxone and also IV fluids. Patient denies tobacco use and denies recent marijuana use although urine was positive for marijuana and opiates. Patient does have a pain contract with pain management and receives morphine for chronic back pain. Patient does admit to excessive thirst with polyuria and polydipsia and did have occasional nausea and vomiting over the last week. COVID-19 was negative. 12/01/2021 Patient is seen in follow-up this morning blood sugars improved and patient is maintained on long-acting along with sliding scale with Accu-Cheks before meals and at bedtime. Patient having temps with T-max 103 last night and will obtain urine culture, blood cultures, chest x-ray, and sputum culture and also influenza testing. Patient denies any chest pain or shortness of breath. Patient does have some cough with rhonchi noted on exam and reports that he does use inhalers in the outpatient setting. Will reorder albuterol inhaler. Will initiate ceftriaxone with follow-up blood cultures. Patient has been receiving education regarding subcutaneous injections and dietary modifications secondary to new onset diabetes. Will also order incentive spirometer. Review of systems: Constitutional: No reports of fatigue, reports of fever and chills Cardiovascular: No reports of chest pain or palpitations Respiratory: No reports of shortness of breath, reports cough GI: No reports of nausea, vomiting, or diarrhea : No reports of dysuria or retention Neurovascular: reports of generalized weakness All medications have been reviewed PHYSICAL EXAMINATION: GENERAL: The patient is alert and oriented x4, thin built HEENT: Pupils are round and equally reacting to light. EOMI. no scleral icterus. No conjunctival pallor. Normocephalic, atraumatic. No pharyngeal erythema. No thyromegaly. Oral mucosa is dry CARDIOVASCULAR: S1 and S2 muffled PULMONARY: diminished breath sounds bilaterally with no wheezing and some mild rhonchi noted. ABDOMEN: soft. Nontender on exam. non-distended, normoactive bowel sounds. No palpable organomegaly. MUSCULOSKELETAL: No joint swelling or deformity. EXTREMITIES: No cyanosis, clubbing, or pedal edema. NEUROLOGICAL: Gross neurological examination did not reveal any focal deficits. Diffuse weakness SKIN: No rashes. Assessment: Elevated blood sugars, new onset diabetes mellitus, uncontrolled with hyperglycemia Hypertension Polyuria, polydipsia COPD, not in exacerbation Fevers with mild leukocytosis of unknown origin possibly secondary to acute pneumonia, will initiate blood cultures, sputum culture, repeat chest x-ray, and start antibiotics Hyponatremia, possibly hypovolemic hyponatremia Secondary to excessive polydipsia Osteoarthritis Chronic back pain on pain management contract Positive marijuana on urine drug screen GI prophylaxis DVT prophylaxis Full code Plan: Recommend to continue with current medications and continue sliding scale , long-acting insulin along with Accu-Cheks before meals and at bedtime. Hemoglobin A1c was was above 12 and will need to continue on insulin therapy and will have patient follow up with endocrine in the outpatient setting. case management following and working on diabetic supplies along with glucometer and reports that the insulin will be covered by insurance. Will refer to endocrine on discharge. Patient has also been having increasing weakness and more frequent falls and will have physical therapy evaluate the patient. Patient spiking some temps last night and will initiate blood culture, sputum culture, chest x-ray, urine culture, empiric antibiotics and monitor closely for any further fevers. Incentive spirometer was ordered and encourage the patient use at least 10 times every hour while awake. Patient does have a pain management contract with Dr. Aldridge and is on chronic oral morphine. Consult dietitian for diabetes education. The impression and plan of care has been dictated by Lyn Alcala, nurse practitioner as directed. Dr. Cami MD I have performed a history and examination and MDM of this patient, discussed the same with the dictator, and agree with the dictator's assessment and plan as written ,documented as a scribe. Based on total visit time, I have performed more than 50% of the visit. Any additional findings or plans will be noted. Objective - Vital Signs Vital signs: Vital Signs Temp 98.8 F 11/30/21 14:00 Pulse 95 11/30/21 14:00 Resp 18 11/30/21 14:00 BP 137/87 11/30/21 14:00 Pulse Ox 96 11/30/21 14:00 FiO2 Intake & Output 11/29/21 11/30/21 11/30/21 18:59 06:59 18:59 Output Total 300 Balance -300 Weight 68.039 kg 68.039 kg Output: Urine 300 Other: Voiding Method Toilet Toilet # Voids 1 1 - Labs CBC & Chem 7: 12/01/21 07:07 12/01/21 07:07 Labs: Abnormal Lab Results - Last 24 Hours (Table) 11/29/21 11/29/21 11/29/21 Range/Units 09:36 09:36 16:41 POC Glucose (mg/dL) 264 H (70-110) mg/dL Hemoglobin A1c 12.5 H (0.0-6.0) % Procalcitonin 16.10 H (0.02-0.09) ng/mL 11/29/21 11/29/21 11/30/21 Range/Units 18:24 20:22 00:53 POC Glucose (mg/dL) 299 H 241 H 201 H (70-110) mg/dL Hemoglobin A1c (0.0-6.0) % Procalcitonin (0.02-0.09) ng/mL 11/30/21 11/30/21 11/30/21 Range/Units 02:02 07:03 11:40 POC Glucose (mg/dL) 175 H 132 H 157 H (70-110) mg/dL Hemoglobin A1c (0.0-6.0) % Procalcitonin (0.02-0.09) ng/mL
[2021-12-01] MEDS: HEPARIN SODIUM,PORCINE/PF 5,000 UNIT/0.5 ML SYRINGE SQ SCH ×2 (09:55→21:58)
[2021-12-01 11:14] LABS: Glucose,Whole Blood 253 mg/dL (70-110)
[2021-12-01 13:47] LABS: Glucose,Whole Blood 206 mg/dL (70-110)
--- NOTE | 2021-12-01 15:36 | P.PN ---
Subjective Progress Note Date: 12/01/21 This is a 66-year-old male who presented to the emergency department with increasing weakness and patient reports to having falls more frequently over the last week or so and came to the ER for further evaluation. Patient reports his weakness became so severe he was unable to stand up. Patient denies any previous injury and has been falling more frequently. Patient follows with Dr. Parker in the outpatient setting and has a past medical history of COPD, hypertension, osteoarthritis and chronic back pain and reports to being on a pain contract with Dr. Aldridge with morphine. Patient underwent CT of the brain which showed a normal unenhanced head CT and clearing of a subdural hemorrhage over the right temporal lobe compared to old exam. Looking back further into the chart on November 162020 patient did have a fall with injury and possible LOC and there was a small right-sided subdural hematoma with minimal pneumocephalus and no definitive calvarial fracture noted with no acute abnormality of the cervical spine. EKG showed sinus tachycardia with a heart rate of 120. Patient was admitted for new onset diabetes with blood sugars over 600. Patient was given a dose of IV insulin and will initiate sliding scale along with Accu-Cheks before meals and at bedtime and obtain a hemoglobin A1c. Patient was also found to be febrile at 99.9 and currently 94% on room air. Patient was given a dose of Zithromax and ceftriaxone and also IV fluids. Patient denies tobacco use and denies recent marijuana use although urine was positive for marijuana and opiates. Patient does have a pain contract with pain management and receives morphine for chronic back pain. Patient does admit to excessive thirst with polyuria and polydipsia and did have occasional nausea and vomiting over the last week. COVID-19 was negative. 11/30/2021 Patient is seen in follow-up this morning blood sugars improved and patient is maintained on long-acting along with sliding scale with Accu-Cheks before meals and at bedtime. Patient having temps with T-max 103 last night and will obtain urine culture, blood cultures, chest x-ray, and sputum culture and also influenza testing. Patient denies any chest pain or shortness of breath. Patient does have some cough with rhonchi noted on exam and reports that he does use inhalers in the outpatient setting. Will reorder albuterol inhaler. Will initiate ceftriaxone with follow-up blood cultures. Patient has been receiving education regarding subcutaneous injections and dietary modifications secondary to new onset diabetes. Will also order incentive spirometer. 12/01/2021 Patient is seen this morning currently afebrile although did spike temps early this morning of 101.1 and will consult infectious disease for possible pneumonia. Patient is continuing with incentive spirometer use and encourage the patient to continue using 10 times every hour while awake. Patient also continued on oral Zithromax along with IV ceftriaxone and cultures have been obtained. Blood cultures have been negative. Sputum culture has been ordered and not collected. Patient continues to request to go home, but will have ID evaluate and follow up on cultures. Recommend repeat chest xray in the am and also repeat labs. Patient has been self injecting his insulins and doing well in terms of new onset diabetes. Hemoglobin A1c is 12.5. Patient denies any chest pain or shortness of breath. Patient is tolerating diet with no reports of nausea or vomiting noted. Review of systems: Constitutional: No reports of fatigue, reports of fever and chills Cardiovascular: No reports of chest pain or palpitations Respiratory: No reports of shortness of breath, reports cough GI: No reports of nausea, vomiting, or diarrhea : No reports of dysuria or retention Neurovascular: no reports of weakness All medications have been reviewed PHYSICAL EXAMINATION: GENERAL: The patient is alert and oriented x4, thin built HEENT: Pupils are round and equally reacting to light. EOMI. no scleral icterus. No conjunctival pallor. Normocephalic, atraumatic. No pharyngeal erythema. No thyromegaly. Oral mucosa is dry CARDIOVASCULAR: S1 and S2 muffled PULMONARY: diminished breath sounds bilaterally with no wheezing and some mild rhonchi noted. ABDOMEN: soft. Nontender on exam. non-distended, normoactive bowel sounds. No palpable organomegaly. MUSCULOSKELETAL: No joint swelling or deformity. EXTREMITIES: No cyanosis, clubbing, or pedal edema. NEUROLOGICAL: Gross neurological examination did not reveal any focal deficits. Diffuse weakness SKIN: No rashes. Assessment: Elevated blood sugars, new onset diabetes mellitus, uncontrolled with hyperglycemia Hypertension Polyuria, polydipsia COPD, not in exacerbation Fevers with mild leukocytosis of unknown origin possibly secondary to acute pneumonia, will initiate blood cultures, sputum culture, repeat chest x-ray, and start antibiotics, consult to ID placed Hyponatremia, possibly hypovolemic hyponatremia Secondary to excessive polydipsia Osteoarthritis Chronic back pain on pain management contract Positive marijuana on urine drug screen GI prophylaxis DVT prophylaxis Full code Plan: Recommend to continue with current medications and continue sliding scale , long-acting insulin along with Accu-Cheks before meals and at bedtime. Hemoglobin A1c was was above 12 and will need to continue on insulin therapy and will have patient follow up with endocrine in the outpatient setting. case management following and working on diabetic supplies along with glucometer and reports that the insulin will be covered by insurance. Will refer to endocrine on discharge. Patient has also been having increasing weakness and more frequent falls and will have physical therapy evaluate the patient. Patient continues to have fevers and have restarted IV abx in the form of ceftriaxone and oral zithromax. await blood culture, sputum culture. Incentive spirometer was ordered and encourage the patient to use at least 10 times every hour while awake. Patient does have a pain management contract with Dr. Aldridge and is on chronic oral morphine. Consult dietitian for diabetes education. ID consulted for continued fevers. Will order labs and repeat chest xray for am. The impression and plan of care has been dictated by Lyn Alcala, nurse practitioner as directed. Dr. Cami MD I have performed a history and examination and MDM of this patient, discussed the same with the dictator, and agree with the dictator's assessment and plan as written ,documented as a scribe. Based on total visit time, I have performed more than 50% of the visit. Any additional findings or plans will be noted. Objective - Vital Signs Vital signs: Vital Signs Temp 98.7 F 12/01/21 07:47 Pulse 80 12/01/21 08:11 Resp 15 12/01/21 01:24 BP 110/77 12/01/21 07:47 Pulse Ox 95 12/01/21 07:47 FiO2 Intake & Output 11/30/21 12/01/21 12/01/21 18:59 06:59 18:59 Intake Total 540 Balance 540 Weight 68.039 kg Intake: Oral 540 Other: Voiding Method Toilet Toilet Toilet # Voids 3 - Labs CBC & Chem 7: 12/01/21 07:07 12/01/21 07:07 Labs: Abnormal Lab Results - Last 24 Hours (Table) 11/30/21 11/30/2111/30/22 Range/Units 11:40 14:21 20:35 Hgb (13.0-17.5) gm/dL Hct (39.0-53.0) % Plt Count (150-450) k/uL Sodium (137-145) mmol/L BUN (9-20) mg/dL Glucose (74-99) mg/dL POC Glucose (mg/dL) 157 H 196 H (70-110) mg/dL Calcium (8.4-10.2) mg/dL Urine Protein 1+ H (Negative) Urine Glucose (UA) 3+ H (Negative) Urine Ketones 1+ H (Negative) Urine Mucus Rare H (None) /hpf 12/01/21 12/01/21 12/01/21 Range/Units 02:27 06:43 07:07 Hgb 12.8 L (13.0-17.5) gm/dL Hct 37.4 L (39.0-53.0) % Plt Count 145 L (150-450) k/uL Sodium (137-145) mmol/L BUN (9-20) mg/dL Glucose (74-99) mg/dL POC Glucose (mg/dL) 150 H 149 H (70-110) mg/dL Calcium (8.4-10.2) mg/dL Urine Protein (Negative) Urine Glucose (UA) (Negative) Urine Ketones (Negative) Urine Mucus (None) /hpf 12/01/21 Range/Units 07:07 Hgb (13.0-17.5) gm/dL Hct (39.0-53.0) % Plt Count (150-450) k/uL Sodium 135 L (137-145) mmol/L BUN 8 L (9-20) mg/dL Glucose 153 H (74-99) mg/dL POC Glucose (mg/dL) (70-110) mg/dL Calcium 7.3 L (8.4-10.2) mg/dL Urine Protein (Negative) Urine Glucose (UA) (Negative) Urine Ketones (Negative) Urine Mucus (None) /hpf
[2021-12-01] MEDS: ONDANSETRON 4 MG/2 ML VIAL IVP PRN (16:26)
[2021-12-01 16:48] LABS: Glucose,Whole Blood 142 mg/dL (70-110)
[2021-12-01 21:47] LABS: Glucose,Whole Blood 138 mg/dL (70-110)
[2021-12-01] MEDS: traZODone HCL 100 MG TAB PO SCH (21:58)
[2021-12-02 02:25] LABS: Glucose,Whole Blood 132 mg/dL (70-110)
[2021-12-02] MEDS: MORPHINE SULFATE ER 60 MG TABLET PO SCH ×2 (05:48→14:16)
[2021-12-02 06:58] LABS: Glucose,Whole Blood 166 mg/dL (70-110)
[2021-12-02] MEDS ORDERED: RX INFO: IV CONTRAST WAS GIVEN 1 EACH MISC MISCELLANE PRN (07:26)
--- NOTE | 2021-12-02 08:05 | P.CONS ---
History of Present Illness - Reason for Consult Consult date: 12/01/21 Pneumonia continued fever Requesting physician: Buck Almanza - Chief Complaint Weakness and fall x few days - History of Present Illness Patient is a 66-year-old male with a past medical he significant for smoking however had the patient has quit many years ago patient is presenting to the hospital 2 days ago for evaluation of weakness have difficulty balance and the symptom has been going on for a week apparently the patient did have a few falls however denies any specific weakness or injury patient denies having any headache or URI symptoms denies having any chest pain or shortness of breath but did have a minimal chronic cough with occasional sputum production but no purulence no hemoptysis denies any abdominal pain no diarrhea patient on presen tation to the hospital did have a fever of 102.4 F patient did have white count 13.6 with a left shift creatinine was normal did have elevated procalcitonin urine has been negative influenza and craig PCR was negative patient is being treated with a Rocephin and Zithromax infectious disease was consulted today for further management of antibiotic therapy sputum culture requested not obtained blood culture has been negative so far, patient did have a chest x-ray left lower lobe masslike infiltrate noted reflect pneumonia however underlying mass not excluded Review of Systems Positive point has been mentioned in the HPI rest of the systems are negative Past Medical History Past Medical History: COPD, Hypertension, Osteoarthritis (OA) Additional Past Medical History / Comment(s): chronic back pain-L4 degeneration History of Any Multi-Drug Resistant Organisms: None Reported Past Surgical History: Orthopedic Surgery Additional Past Surgical History / Comment(s): clavicle Past Anesthesia/Blood Transfusion Reactions: No Reported Reaction Smoking Status: Former smoker - Past Family History Mother Family Medical History: Diabetes Mellitus Brother(s) Family Medical History: Diabetes Mellitus Medications and Allergies Home Medications Medication Instructions Recorded Confirmed Type HYDROcodone/APAP 7.5-325MG [Gilman 1 tab PO BID 01/30/14 11/28/21 History 7.5-325] Morphine Sulfate [Ms Contin] 60 mg PO Q12H 11/29/15 11/28/21 History Metoprolol Succinate (ER) [Toprol 50 mg PO DAILY 04/27/17 11/28/21 History XL] traZODone HCL 100 mg PO HS 11/16/20 11/28/21 History INSULIN ASPART (NovoLOG) [NovoLOG 5 unit SQ ACHS 30 Days #5 each 11/29/21 Rx (formulary)] Insulin Detemir (Levemir) [Levemir] 10 unit SQ DAILY@0700 30 Days #4 11/29/21 Rx each Allergies Allergy/AdvReac Type Severity Reaction Status Date / Time celecoxib [From Celebrex] Allergy Swelling Verified 11/28/21 22:40 Physical Exam Vitals: Vital Signs Temp Pulse Pulse Resp BP BP Pulse Ox 12/01/21 11:21 80 12/01/21 08:11 80 12/01/21 08:00 80 12/01/21 07:47 98.7 F 88 110/77 95 12/01/21 04:45 98.3 F 12/01/21 01:24 101.1 F H 100 15 134/72 95 11/30/21 20:29 101.9 F H 111 H 16 151/75 96 11/30/21 20:08 84 11/30/21 19:57 80 11/30/21 16:20 84 11/30/21 16:08 84 11/30/21 14:00 98.8 F 95 18 137/87 96 11/30/21 11:31 99.2 F Intake and Output 11/30/21 12/01/21 12/01/21 22:59 06:59 14:59 Intake Total 540 Balance 540 Intake: Oral 540 Other: Voiding Method Toilet Toilet # Voids 3 GENERAL DESCRIPTION: Elderly male lying in bed, no distress. No tachypnea or accessory muscle of respiration use. HEENT: Shows Pallor , no scleral icterus. Oral mucous membrane is dry. No pharyngeal erythema or thrush NECK: Trachea central, no thyromegaly. LUNGS: Unlabored breathing. Decreased breath sounds at the base. No wheeze or crackle. HEART: S1, S2, regular rate and rhythm. No loud murmur ABDOMEN: Soft, no tenderness , guarding or rigidity, no organomegaly EXTREMITIES: No edema of feet. SKIN: No rash, no masses palpable. NEUROLOGICAL: The patient is awake, alert, oriented x3, mood and affect normal. Results CBC & Chem 7: 12/01/21 07:07 12/01/21 07:07 Labs: Abnormal Lab Results - Last 24 Hours (Table) 11/30/21 11/30/21 11/30/21 Range/Units 11:40 14:21 20:35 Hgb (13.0-17.5) gm/dL Hct (39.0-53.0) % Plt Count (150-450) k/uL Sodium (137-145) mmol/L BUN (9-20) mg/dL Glucose (74-99) mg/dL POC Glucose (mg/dL) 157 H 196 H (70-110) mg/dL Calcium (8.4-10.2) mg/dL Urine Protein 1+ H (Negative) Urine Glucose (UA) 3+ H (Negative) Urine Ketones 1+ H (Negative) Urine Mucus Rare H (None) /hpf 12/01/21 12/01/21 12/01/21 Range/Units 02:27 06:43 07:07 Hgb 12.8 L (13.0-17.5) gm/dL Hct 37.4 L (39.0-53.0) % Plt Count 145 L (150-450) k/uL Sodium (137-145) mmol/L BUN (9-20) mg/dL Glucose (74-99) mg/dL POC Glucose (mg/dL) 150 H 149 H (70-110) mg/dL Calcium (8.4-10.2) mg/dL Urine Protein (Negative) Urine Glucose (UA) (Negative) Urine Ketones (Negative) Urine Mucus (None) /hpf 12/01/21 12/01/21 Range/Units 07:07 11:13 Hgb (13.0-17.5) gm/dL Hct (39.0-53.0) % Plt Count (150-450) k/uL Sodium 135 L (137-145) mmol/L BUN 8 L (9-20) mg/dL Glucose 153 H (74-99) mg/dL POC Glucose (mg/dL) 253 H (70-110) mg/dL Calcium 7.3 L (8.4-10.2) mg/dL Urine Protein (Negative) Urine Glucose (UA) (Negative) Urine Ketones (Negative) Urine Mucus (None) /hpf Assessment and Plan (1) Pneumonia Current Visit: Yes Status: Acute Code(s): J18.9 - PNEUMONIA, UNSPECIFIED ORGANISM SNOMED Code(s): 164137032 Plan: 1patient presented to hospital with sepsis and respiratory have fever elevated white count source likely pneumonia however the patient did have a significant history of smoking and concern for masslike opacity underlying malignancy or complicated pneumonia need to be ruled out in view of persistent fever. 2we will obtain a CT of the chest to better define underlying pneumonia. 3check urine for Legionella antigen. 4continue with Rocephin and Zithromax. We will follow on clinical condition and cultures to further adjust medication if needed Thank you for this consultation will follow this patient along with you Time with Patient: Greater than 30
[2021-12-02] MEDS: INSULIN DETEMIR (LEVEMIR) 100 UNIT/ML SYR SQ SCH (08:27)
[2021-12-02] MEDS: HYDROcodone/APAP 7.5-325MG 1 EACH TAB PO SCH ×2 (08:28→21:53)
[2021-12-02] MEDS: HEPARIN SODIUM,PORCINE/PF 5,000 UNIT/0.5 ML SYRINGE SQ SCH ×2 (08:28→21:52)
[2021-12-02] MEDS: AZITHROMYCIN 500 MG TAB PO SCH (08:28)
[2021-12-02] MEDS: INSULIN ASPART (NovoLOG) 100 UNIT/ML VIAL SQ SCH ×4 (08:29→21:50)
[2021-12-02] MEDS: METOPROLOL SUCCINATE (ER) 50 MG TAB.ER.24H PO SCH (08:29)
[2021-12-02] MEDS: FAMOTIDINE 20 MG TAB PO SCH ×2 (08:29→21:54)
[2021-12-02] MEDS: ALBUTEROL NEBULIZED 2.5 MG/3 ML INHALATION SCH ×4 (08:37→20:34)
--- NOTE | 2021-12-02 10:42 | CT ---
EXAMINATION TYPE: CT chest w con DATE OF EXAM: 12/02/2021 COMPARISON: CT 03/07/2016 HISTORY: Pneumonia VS Mass CT DLP: 255.7 mGycm Automated exposure control for dose reduction was used. CONTRAST: CT scan of the chest is performed with IV Contrast, patient injected with 100 mL of Isovue 300. FINDINGS: LUNGS: The lungs show air bronchograms, consolidation at the left lower lobe. There is no pleural e ffusion or pneumothorax seen. The tracheobronchial tree is patent. MEDIASTINUM: There are no greater than 1 cm hilar or mediastinal lymph nodes. No pericardial effusi on is seen. There are some coronary artery calcifications. AORTA: No additional significant abnormality is seen. OTHER: Liver shows low attenuation possibly due to hepatic steatosis, liver may be enlarged. Spleen is borderline enlarged. IMPRESSION: Findings consistent with left lower lobe pneumonia, follow-up to resolution.
[2021-12-02 11:21] LABS: Glucose,Whole Blood 281 mg/dL (70-110)
[2021-12-02] MEDS: SODIUM CHLORIDE 0.9% 1,000 ML IV SCH ×3 (11:50→23:11)
[2021-12-02] MEDS: ACETAMINOPHEN TAB 325 MG TAB PO PRN (15:50)
[2021-12-02 17:11] LABS: Glucose,Whole Blood 213 mg/dL (70-110)
--- NOTE | 2021-12-02 20:18 | P.PN ---
Subjective This is a 66-year-old male who presented to the emergency department with increasing weakness and patient reports to having falls more frequently over the last week or so and came to the ER for further evaluation. Patient reports his weakness became so severe he was unable to stand up. Patient denies any previous injury and has been falling more frequently. Patient follows with Dr. Parker in the outpatient setting and has a past medical history of COPD, hypertension, osteoarthritis and chronic back pain and reports to being on a pain contract with Dr. Aldridge with morphine. Patient underwent CT of the brain which showed a normal unenhanced head CT and clearing of a subdural hemorrhage over the right temporal lobe compared to old exam. Looking back further into the chart on November 162020 patient did have a fall with injury and possible LOC and there was a small right-sided subdural hematoma with minimal pneumocephalus and no definitive calvarial fracture noted with no acute abnormality of the cervical spine. EKG showed sinus tachycardia with a heart rate of 120. Patient was admitted for new onset diabetes with blood sugars over 600. Patient was given a dose of IV insulin and will initiate sliding scale along with Accu-Cheks before meals and at bedtime and obtain a hemoglobin A1c. Patient was also found to be febrile at 99.9 and currently 94% on room air. Patient was given a dose of Zithromax and ceftriaxone and also IV fluids. Patient denies tobacco use and denies recent marijuana use although urine was positive for marijuana and opiates. Patient does have a pain contract with pain management and receives morphine for chronic back pain. Patient does admit to excessive thirst with polyuria and polydipsia and did have occasional nausea and vomiting over the last week. COVID-19 was negative. 11/30/2021 Patient is seen in follow-up this morning blood sugars improved and patient is maintained on long-acting along with sliding scale with Accu-Cheks before meals and at bedtime. Patient having temps with T-max 103 last night and will obtain urine culture, blood cultures, chest x-ray, and sputum culture and also influenza testing. Patient denies any chest pain or shortness of breath. Patient does have some cough with rhonchi noted on exam and reports that he does use inhalers in the outpatient setting. Will reorder albuterol inhaler. Will initiate ceftriaxone with follow-up blood cultures. Patient has been receiving education regarding subcutaneous injections and dietary modifications secondary to new onset diabetes. Will also order incentive spirometer. 12/01/2021 Patient is seen this morning currently afebrile although did spike temps early this morning of 101.1 and will consult infectious disease for possible pneumonia. Patient is continuing with incentive spirometer use and encourage the patient to continue using 10 times every hour while awake. Patient also continued on oral Zithromax along with IV ceftriaxone and cultures have been obtained. Blood cultures have been negative. Sputum culture has been ordered and not collected. Patient continues to request to go home, but will have ID evaluate and follow up on cultures. Recommend repeat chest xray in the am and also repeat labs. Patient has been self injecting his insulins and doing well in terms of new onset diabetes. Hemoglobin A1c is 12.5. Patient denies any chest pain or shortness of breath. Patient is tolerating diet with no reports of nausea or vomiting noted. 12/02/2021 Patient presents because of falling at home, he had evidence of new onset diabetes mellitus on admission and he was started on Levemir 15 units daily plus sliding scale. Also he had high grade fever 101 103, pneumonia as suspected, infectious disease team consulted, patient kept on ceftriaxone and Zithromax and CT of the chest ordered Procol stone in his elevated 16.1 and 5.0 Hemoglobin A1c is 12.5% Original antigen is pending as well as sputum culture Objective - Vital Signs Vital signs: Vital Signs Temp 99.1 F 12/02/21 08:00 Pulse 92 12/02/21 12:17 Resp 16 12/02/21 02:00 BP 128/81 12/02/21 08:00 Pulse Ox 97 12/02/21 08:00 FiO2 Intake & Output 12/01/21 12/02/21 12/02/21 18:59 06:59 18:59 Intake Total 400 Balance 400 Intake: Oral 400 Other: Voiding Method Toilet Toilet Toilet # Voids 2 1 # Bowel Movements 1 - Exam GENERAL: The patient is alert and oriented x3, not in any acute distress. Well developed, well nourished. HEENT: Pupils are round and equally reacting to light. EOMI. No scleral icterus. No conjunctival pallor. Normocephalic, atraumatic. No pharyngeal erythema. No thyromegaly. CARDIOVASCULAR: S1 and S2 present. No murmurs, rubs, or gallops. PULMONARY: Chest is clear to auscultation, no wheezing or crackles. ABDOMEN: Soft, nontender, nondistended, normoactive bowel sounds. No palpable organomegaly. MUSCULOSKELETAL: No joint swelling or deformity. EXTREMITIES: No cyanosis, clubbing, or pedal edema. NEUROLOGICAL: Gross neurological examination did not reveal any focal deficits. SKIN: No rashes. no petechiae. - Labs CBC & Chem 7: 12/01/21 07:07 12/01/21 07:07 Labs: Abnormal Lab Results - Last 24 Hours (Table) 12/01/21 12/01/21 12/01/21 Range/Units 13:45 16:47 21:45 POC Glucose (mg/dL) 206 H 142 H 138 H (70-110) mg/dL C-Reactive Protein (0.00-0.80) mg/dL Procalcitonin (0.02-0.09) ng/mL 12/02/21 12/02/21 12/02/21 Range/Units 02:23 06:56 08:02 POC Glucose (mg/dL) 132 H 166 H (70-110) mg/dL C-Reactive Protein 13.70 H (0.00-0.80) mg/dL Procalcitonin (0.02-0.09) ng/mL 12/02/21 12/02/21 Range/Units 08:02 11:20 POC Glucose (mg/dL) 281 H (70-110) mg/dL C-Reactive Protein (0.00-0.80) mg/dL Procalcitonin 5.08 H (0.02-0.09) ng/mL Microbiology - Last 24 Hours (Table) 12/01/21 15:25 Gram Stain - Preliminary Sputum Sputum Culture - Preliminary 11/30/21 11:04 Blood Culture - Preliminary Blood No Growth after 24 hours Assessment and Plan Assessment: Possible pneumonia Elevated blood sugars, new onset diabetes mellitus, uncontrolled with hyp erglycemia Hypertension Polyuria, polydipsia COPD, not in exacerbation Fevers with mild leukocytosis of unknown origin possibly secondary to acute pneumonia, will initiate blood cultures, sputum culture, repeat chest x-ray, and start antibiotics, consult to ID placed Hyponatremia, possibly hypovolemic hyponatremia Secondary to excessive polydipsia Osteoarthritis Chronic back pain on pain management contract Positive marijuana on urine drug screen Plan: This is a pleasant 66 years old male who presents with fall, new diabetes and possible pneumonia Continue with ceftriaxone on Rocephin Follow-up culture results and legionella antigen in the urine Infectious disease team on the case Continue with insulin Levemir and insulin sliding scale and monitor glucose. Labs and medication were reviewed.. Continue same treatment. Continue with symptomatic treatment. Resume home medication. Monitor lytes and vitals. DVT and GI prophylaxis. Further recommendations as per clinical course of the patient DVT prophylaxis: Subcutaneous heparin GI Prophylaxis: Pepcid Prognosis is guarded
[2021-12-02 20:46] LABS: Glucose,Whole Blood 131 mg/dL (70-110)
[2021-12-02] MEDS: traZODone HCL 100 MG TAB PO SCH (21:54)
--- NOTE | 2021-12-03 00:03 | P.PN ---
Subjective Progress Note Date: 12/02/21 Principal diagnosis: Pneumonia Patient is a 66 year male with a past medical history significant for smoking with the patient has quit many years ago presenting to the hospital for weakness fall patient was noticed to be febrile and evidence of right-sided pneumonia. On today's evaluation that is 12/02/2021, the patient did spike a fever of 101F last night the patient is afebrile this morning patient is feeling slightly better his breathing comfortably the patient denies having any chest pain no worsening cough or sputum production no abdominal pain no diarrhea Objective - Vital Signs Vital signs: Vital Signs Temp 99.1 F 12/02/21 08:00 Pulse 100 12/02/21 08:51 Resp 16 12/02/21 02:00 BP 128/81 12/02/21 08:00 Pulse Ox 97 12/02/21 08:00 FiO2 Intake & Output 12/01/21 12/02/21 12/02/21 18:59 06:59 18:59 Intake Total 400 Balance 400 Intake: Oral 400 Other: Voiding Method Toilet Toilet Toilet # Voids 2 1 # Bowel Movements 1 - Exam GENERAL DESCRIPTION: An elderly male lying in bed in no distress RESPIRATORY SYSTEM: Unlabored breathing , decreased breath sounds at bases HEART: S1 S2 regular rate and rhythm , ABDOMEN: Soft , no tenderness EXTREMITIES: No edema feet - Labs CBC & Chem 7: 12/01/21 07:07 12/01/21 07:07 Labs: Abnormal Lab Results - Last 24 Hours (Table) 12/01/21 12/01/21 12/01/21 Range/Units 13:45 16:47 21:45 POC Glucose (mg/dL) 206 H 142 H 138 H (70-110) mg/dL C-Reactive Protein (0.00-0.80) mg/dL Procalcitonin (0.02-0.09) ng/mL 12/02/21 12/02/21 12/02/21 Range/Units 02:23 06:56 08:02 POC Glucose (mg/dL) 132 H 166 H (70-110) mg/dL C-Reactive Protein 13.70 H (0.00-0.80) mg/dL Procalcitonin (0.02-0.09) ng/mL 12/02/21 12/02/21 Range/Units 08:02 11:20 POC Glucose (mg/dL) 281 H (70-110) mg/dL C-Reactive Protein (0.00-0.80) mg/dL Procalcitonin 5.08 H (0.02-0.09) ng/mL Microbiology - Last 24 Hours (Table) 12/01/21 15:25 Gram Stain - Preliminary Sputum Sputum Culture - Preliminary 11/30/21 11:04 Blood Culture - Preliminary Blood No Growth after 24 hours Assessment and Plan (1) Pneumonia Current Visit: Yes Status: Acute Code(s): J18.9 - PNEUMONIA, UNSPECIFIED ORGANISM SNOMED Code(s): 733235131 Plan: 1patient presented to hospital with sepsis and respiratory have fever elevated white count source likely pneumonia however the patient did have a significant history of smoking and concern for masslike opacity underlying malignancy or complicated pneumonia need to be ruled out in view of persistent fever. 2patient did have CT of the chest which was suggestive of pneumonia no evidence of mass or parapneumonic effusion 3waiting for urine for Legionella antigen to be finalize. 4patient to continue with Rocephin and Zithromax and monitor clinical course closely
[2021-12-03] MEDS: MORPHINE SULFATE ER 60 MG TABLET PO SCH ×2 (01:43→13:36)
[2021-12-03 01:56] LABS: Glucose,Whole Blood 167 mg/dL (70-110)
[2021-12-03 07:07] LABS: Glucose,Whole Blood 114 mg/dL (70-110)
[2021-12-03] MEDS: ALBUTEROL NEBULIZED 2.5 MG/3 ML INHALATION SCH ×4 (07:48→21:09)
[2021-12-03] MEDS: INSULIN ASPART (NovoLOG) 100 UNIT/ML VIAL SQ SCH ×4 (08:24→20:56)
[2021-12-03 08:52] LABS: Basophils # (A) 0.02 X 10*3/uL (0.00-0.10); Basophils % (A) 0.5 %; Eosinophils # (A) 0.06 X 10*3/uL (0.04-0.35); Eosinophils % (A) 1.6 %; HCT 34.9 % (39.6-50.0); Immature Grans, Automated 1.3 %; Lymphocytes # (A) 1.09 X 10*3/uL (0.90-5.00); Lymphocytes % (A) 28.9 %; MCH 27.7 pg (27.0-32.0); MCHC 34.4 g/dL (32.0-37.0); MCV 80.6 fL (80.0-97.0); Mean Platelet Volume 9.8 fL (9.5-12.2); Monocytes # (A) 0.31 X 10*3/uL (0.20-1.00); Monocytes % (A) 8.2 %; NRBC Per 100 WBC 0 /100 WBCS (0.0-0.0); Neutrophils # (A) 2.24 X 10*3/uL (1.80-7.70); Neutrophils % (A) 59.5 %; Platelet Count 245 X 10*3/uL (140-440); RBC 4.33 X 10*6/uL (4.40-5.60); RDW 12.5 % (11.5-14.5); WBC 3.77 X 10*3/uL (4.50-10.00)
[2021-12-03 09:07] LABS: African American GFR (CKD) 114.8 (60.0-200.0); Anion Gap 10.5 mmol/L (10.00-18.00); BUN/Creat Ratio 8.86 Ratio (12.00-20.00); Blood Urea Nitrogen 6.2 mg/dL (9.0-27.0); Calcium 7.7 mg/dL (8.7-10.3); Carbon Dioxide 28.5 mmol/L (20.0-27.5); Magnesium 2.3 mg/dL (1.5-2.4); Potassium 3.2 mmol/L (3.5-5.5)
[2021-12-03] MEDS ORDERED: Potassium Replacement Protocol 1 EACH MISC MISCELLANE PRN (09:33)
[2021-12-03] MEDS ORDERED: Magnesium Replacement Protocol 1 EACH MISC MISCELLANE PRN (09:33)
[2021-12-03] MEDS: HYDROcodone/APAP 7.5-325MG 1 EACH TAB PO SCH ×2 (09:42→21:22)
[2021-12-03] MEDS: FAMOTIDINE 20 MG TAB PO SCH ×2 (09:43→21:23)
[2021-12-03] MEDS: INSULIN DETEMIR (LEVEMIR) 100 UNIT/ML SYR SQ SCH (09:43)
[2021-12-03] MEDS: METOPROLOL SUCCINATE (ER) 50 MG TAB.ER.24H PO SCH (09:43)
[2021-12-03] MEDS: HEPARIN SODIUM,PORCINE/PF 5,000 UNIT/0.5 ML SYRINGE SQ SCH ×2 (09:43→21:22)
[2021-12-03] MEDS: AZITHROMYCIN 500 MG TAB PO SCH (09:44)
[2021-12-03] MEDS: POTASSIUM CHLORIDE ER 20 MEQ TAB.ER PO SCH ×2 (11:12→12:23)
[2021-12-03 11:30] LABS: Glucose,Whole Blood 312 mg/dL (70-110)
[2021-12-03 16:36] LABS: Glucose,Whole Blood 108 mg/dL (70-110)
--- NOTE | 2021-12-03 17:41 | P.PN ---
Subjective This is a 66-year-old male who presented to the emergency department with increasing weakness and patient reports to having falls more frequently over the last week or so and came to the ER for further evaluation. Patient reports his weakness became so severe he was unable to stand up. Patient denies any previous injury and has been falling more frequently. Patient follows with Dr. Parker in the outpatient setting and has a past medical history of COPD, hypertension, osteoarthritis and chronic back pain and reports to being on a pain contract with Dr. Aldridge with morphine. Patient underwent CT of the brain which showed a normal unenhanced head CT and clearing of a subdural hemorrhage over the right temporal lobe compared to old exam. Looking back further into the chart on November 162020 patient did have a fall with injury and possible LOC and there was a small right-sided subdural hematoma with minimal pneumocephalus and no definitive calvarial fracture noted with no acute abnormality of the cervical spine. EKG showed sinus tachycardia with a heart rate of 120. Patient was admitted for new onset diabetes with blood sugars over 600. Patient was given a dose of IV insulin and will initiate sliding scale along with Accu-Cheks before meals and at bedtime and obtain a hemoglobin A1c. Patient was also found to be febrile at 99.9 and currently 94% on room air. Patient was given a dose of Zithromax and ceftriaxone and also IV fluids. Patient denies tobacco use and denies recent marijuana use although urine was positive for marijuana and opiates. Patient does have a pain contract with pain management and receives morphine for chronic back pain. Patient does admit to excessive thirst with polyuria and polydipsia and did have occasional nausea and vomiting over the last week. COVID-19 was negative. 11/30/2021 Patient is seen in follow-up this morning blood sugars improved and patient is maintained on long-acting along with sliding scale with Accu-Cheks before meals and at bedtime. Patient having temps with T-max 103 last night and will obtain urine culture, blood cultures, chest x-ray, and sputum culture and also influenza testing. Patient denies any chest pain or shortness of breath. Patient does have some cough with rhonchi noted on exam and reports that he does use inhalers in the outpatient setting. Will reorder albuterol inhaler. Will initiate ceftriaxone with follow-up blood cultures. Patient has been receiving education regarding subcutaneous injections and dietary modifications secondary to new onset diabetes. Will also order incentive spirometer. 12/01/2021 Patient is seen this morning currently afebrile although did spike temps early this morning of 101.1 and will consult infectious disease for possible pneumonia. Patient is continuing with incentive spirometer use and encourage the patient to continue using 10 times every hour while awake. Patient also continued on oral Zithromax along with IV ceftriaxone and cultures have been obtained. Blood cultures have been negative. Sputum culture has been ordered and not collected. Patient continues to request to go home, but will have ID evaluate and follow up on cultures. Recommend repeat chest xray in the am and also repeat labs. Patient has been self injecting his insulins and doing well in terms of new onset diabetes. Hemoglobin A1c is 12.5. Patient denies any chest pain or shortness of breath. Patient is tolerating diet with no reports of nausea or vomiting noted. 12/02/2021 Patient presents because of falling at home, he had evidence of new onset diabetes mellitus on admission and he was started on Levemir 15 units daily plus sliding scale. Also he had high grade fever 101 103, pneumonia as suspected, infectious disease team consulted, patient kept on ceftriaxone and Zithromax and CT of the chest ordered Procol stone in his elevated 16.1 and 5.0 Hemoglobin A1c is 12.5% Original antigen is pending as well as sputum culture 12/03/21 Patient still diagnosed with pneumonia and been treated with ceftriaxone and Zithromax. He has no fever and leukocytosis though. He looks comfortable fully awake and oriented, no significant respiratory signs. However patient has exertional dyspnea and his CT of the chest showed left lower lobe pneumonia. Sputum culture growing [employer] gallstone in comment on to 5.0. Objective - Vital Signs Vital signs: Vital Signs Temp 98.4 F 12/03/21 07:46 Pulse 82 12/03/21 11:34 Resp 16 12/03/21 11:34 BP 149/85 12/03/21 07:46 Pulse Ox 95 12/03/21 07:48 FiO2 Intake & Output 12/02/21 12/03/21 12/03/21 18:59 06:59 18:59 Other: Voiding Method Toilet Toilet Toilet # Voids 2 2 - Exam GENERAL: The patient is alert and oriented x3, not in any acute distress. Well developed, well nourished. HEENT: Pupils are round and equally reacting to light. EOMI. No scleral icterus. No conjunctival pallor. Normocephalic, atraumatic. No pharyngeal erythema. No thyromegaly. CARDIOVASCULAR: S1 and S2 present. No murmurs, rubs, or gallops. PULMONARY: Chest is clear to auscultation, no wheezing or crackles. ABDOMEN: Soft, nontender, nondistended, normoactive bowel sounds. No palpable organomegaly. MUSCULOSKELETAL: No joint swelling or deformity. EXTREMITIES: No cyanosis, clubbing, or pedal edema. NEUROLOGICAL: Gross neurological examination did not reveal any focal deficits. SKIN: No rashes. no petechiae. - Labs CBC & Chem 7: 12/03/21 06:25 12/03/21 06:25 Labs: Abnormal Lab Results - Last 24 Hours (Table) 12/02/21 12/02/21 12/03/21 Range/Units 17:09 20:43 01:54 WBC (4.50-10.00) X 10*3/uL RBC (4.40-5.60) X 10*6/uL Hgb (13.0-17.0) g/dL Hct (39.6-50.0) % Immature Gran # (0.00-0.04) X 10*3/uL Potassium (3.5-5.5) mmol/L Carbon Dioxide (20.0-27.5) mmol/L BUN (9.0-27.0) mg/dL BUN/Creatinine Ratio (12.00-20.00) Ratio Glucose (70-110) mg/dL POC Glucose (mg/dL) 213 H 131 H 167 H (70-110) mg/dL Calcium (8.7-10.3) mg/dL 12/03/21 12/03/21 12/03/21 Range/Units 06:25 06:25 07:05 WBC 3.77 L (4.50-10.00) X 10*3/uL RBC 4.33 L (4.40-5.60) X 10*6/uL Hgb 12.0 L (13.0-17.0) g/dL Hct 34.9 L (39.6-50.0) % Immature Gran # 0.05 H (0.00-0.04) X 10*3/uL Potassium 3.2 L (3.5-5.5) mmol/L Carbon Dioxide 28.5 H (20.0-27.5) mmol/L BUN 6.2 L (9.0-27.0) mg/dL BUN/Creatinine Ratio 8.86 L (12.00-20.00) Ratio Glucose 125 H (70-110) mg/dL POC Glucose (mg/dL) 114 H (70-110) mg/dL Calcium 7.7 L (8.7-10.3) mg/dL 12/03/21 Range/Units 11:29 WBC (4.50-10.00) X 10*3/uL RBC (4.40-5.60) X 10*6/uL Hgb (13.0-17.0) g/dL Hct (39.6-50.0) % Immature Gran # (0.00-0.04) X 10*3/uL Potassium (3.5-5.5) mmol/L Carbon Dioxide (20.0-27.5) mmol/L BUN (9.0-27.0) mg/dL BUN/Creatinine Ratio (12.00-20.00) Ratio Glucose (70-110) mg/dL POC Glucose (mg/dL) 312 H (70-110) mg/dL Calcium (8.7-10.3) mg/dL Microbiology - Last 24 Hours (Table) 12/01/21 15:25 Gram Stain - Preliminary Sputum Sputum Culture - Preliminary Yeast species 11/30/21 11:04 Blood Culture - Preliminary Blood No Growth after 48 hours Assessment and Plan Assessment: Possible pneumonia Elevated blood sugars, new onset diabetes mellitus, uncontrolled with hyperglycemia Hypertension Polyuria, polydipsia COPD, not in exacerbation Fevers with mild leukocytosis of unknown origin possibly secondary to acute pneumonia, will initiate blood cultures, sputum culture, repeat chest x-ray, and start antibiotics, consult to ID placed Hyponatremia, possibly hypovolemic hyponatremia Secondary to excessive polydipsia Osteoarthritis Chronic back pain on pain management contract Positive marijuana on urine drug screen Plan: This is a pleasant 66 years old male who presents with fall, new diabetes and possible pneumonia Continue with ceftriaxone on Rocephin Follow-up culture results and legionella antigen in the urine Infectious disease team on the case Continue with insulin Levemir and insulin sliding scale and monitor glucose. Labs and medication were reviewed.. Continue same treatment. Continue with s ymptomatic treatment. Resume home medication. Monitor lytes and vitals. DVT and GI prophylaxis. Further recommendations as per clinical course of the patient DVT prophylaxis: Subcutaneous heparin GI Prophylaxis: Pepcid Prognosis is guarded
[2021-12-03 20:40] LABS: Glucose,Whole Blood 135 mg/dL (70-110)
[2021-12-03] MEDS: traZODone HCL 100 MG TAB PO SCH (21:23)
[2021-12-03] MEDS: ONDANSETRON 4 MG/2 ML VIAL IVP PRN (21:24)
[2021-12-04] MEDS: SODIUM CHLORIDE 0.9% 1,000 ML IV SCH ×2 (00:53→21:19)
--- NOTE | 2021-12-04 01:32 | P.PN ---
Subjective Progress Note Date: 12/03/21 Principal diagnosis: Pneumonia Patient is a 66 year male with a past medical history significant for smoking with the patient has quit many years ago presenting to the hospital for weakness fall patient was noticed to be febrile and evidence of right-sided pneumonia. On today's evaluation that is 12/03/2021, the patient is afebrile, the patient is breathing comfortably on room air the patient denies having any chest pain no worsening cough or sputum production no abdominal pain no diarrhea, did mention episodes of vomiting this morning Objective - Vital Signs Vital signs: Vital Signs Temp 98.4 F 12/03/21 07:46 Pulse 82 12/03/21 11:34 Resp 16 12/03/21 11:34 BP 149/85 12/03/21 07:46 Pulse Ox 95 12/03/21 07:48 FiO2 Intake & Output 12/02/21 12/03/21 12/03/21 18:59 06:59 18:59 Other: Voiding Method Toilet Toilet Toilet # Voids 2 2 - Exam GENERAL DESCRIPTION: An elderly male lying in bed in no distress RESPIRATORY SYSTEM: Unlabored breathing , decreased breath sounds at bases HEART: S1 S2 regular rate and rhythm , ABDOMEN: Soft , no tenderness EXTREMITIES: No edema feet - Labs CBC & Chem 7: 12/03/21 06:25 12/03/21 06:25 Labs: Abnormal Lab Results - Last 24 Hours (Table) 12/02/21 12/02/21 12/03/21 Range/Units 17:09 20:43 01:54 WBC (4.50-10.00) X 10*3/uL RBC (4.40-5.60) X 10*6/uL Hgb (13.0-17.0) g/dL Hct (39.6-50.0) % Immature Gran # (0.00-0.04) X 10*3/uL Potassium (3.5-5.5) mmol/L Carbon Dioxide (20.0-27.5) mmol/L BUN (9.0-27.0) mg/dL BUN/Creatinine Ratio (12.00-20.00) Ratio Glucose (70-110) mg/dL POC Glucose (mg/dL) 213 H 131 H 167 H (70-110) mg/dL Calcium (8.7-10.3) mg/dL 12/03/21 12/03/21 12/03/21 Range/Units 06:25 06:25 07:05 WBC 3.77 L (4.50-10.00) X 10*3/uL RBC 4.33 L (4.40-5.60) X 10*6/uL Hgb 12.0 L (13.0-17.0) g/dL Hct 34.9 L (39.6-50.0) % Immature Gran # 0.05 H (0.00-0.04) X 10*3/uL Potassium 3.2 L (3.5-5.5) mmol/L Carbon Dioxide 28.5 H (20.0-27.5) mmol/L BUN 6.2 L (9.0-27.0) mg/dL BUN/Creatinine Ratio 8.86 L (12.00-20.00) Ratio Glucose 125 H (70-110) mg/dL POC Glucose (mg/dL) 114 H (70-110) mg/dL Calcium 7.7 L (8.7-10.3) mg/dL 12/03/21 Range/Units 11:29 WBC (4.50-10.00) X 10*3/uL RBC (4.40-5.60) X 10*6/uL Hgb (13.0-17.0) g/dL Hct (39.6-50.0) % Immature Gran # (0.00-0.04) X 10*3/uL Potassium (3.5-5.5) mmol/L Carbon Dioxide (20.0-27.5) mmol/L BUN (9.0-27.0) mg/dL BUN/Creatinine Ratio (12.00-20.00) Ratio Glucose (70-110) mg/dL POC Glucose (mg/dL) 312 H (70-110) mg/dL Calcium (8.7-10.3) mg/dL Microbiology - Last 24 Hours (Table) 12/01/21 15:25 Gram Stain - Preliminary Sputum Sputum Culture - Preliminary Yeast species 11/30/21 11:04 Blood Culture - Preliminary Blood No Growth after 48 hours Assessment and Plan (1) Pneumonia Current Visit: Yes Status: Acute Code(s): J18.9 - PNEUMONIA, UNSPECIFIED ORGANISM SNOMED Code(s): 721995808 Plan: 1patient presented to hospital with sepsis and respiratory have fever elevated white count source likely pneumonia however the patient did have a significant history of smoking and concern for masslike opacity underlying malignancy or complicated pneumonia need to be ruled out in view of persistent fever. 2patient did have CT of the chest which was suggestive of pneumonia no evidence of mass or parapneumonic effusion 3 urine for Legionella antigen came back negative 4patient has shown clinical improvement and will continue with Rocephin and Zithromax with the plan to finish therapy with oral Augmentin Time with Patient: Less than 30
[2021-12-04] MEDS: MORPHINE SULFATE ER 60 MG TABLET PO SCH ×2 (02:02→14:50)
[2021-12-04 02:14] LABS: Glucose,Whole Blood 132 mg/dL (70-110)
[2021-12-04 06:01] LABS: Glucose,Whole Blood 126 mg/dL (70-110)
[2021-12-04 06:43] LABS: Glucose,Whole Blood 121 mg/dL (70-110)
[2021-12-04] MEDS: INSULIN ASPART (NovoLOG) 100 UNIT/ML VIAL SQ SCH ×4 (07:30→21:18)
[2021-12-04] MEDS: ALBUTEROL NEBULIZED 2.5 MG/3 ML INHALATION SCH ×4 (07:50→19:39)
[2021-12-04] MEDS: HYDROcodone/APAP 7.5-325MG 1 EACH TAB PO SCH ×2 (08:03→21:18)
[2021-12-04] MEDS: FAMOTIDINE 20 MG TAB PO SCH ×2 (08:03→21:18)
[2021-12-04] MEDS: INSULIN DETEMIR (LEVEMIR) 100 UNIT/ML SYR SQ SCH (08:04)
[2021-12-04] MEDS: METOPROLOL SUCCINATE (ER) 50 MG TAB.ER.24H PO SCH (08:04)
[2021-12-04] MEDS: HEPARIN SODIUM,PORCINE/PF 5,000 UNIT/0.5 ML SYRINGE SQ SCH ×2 (08:05→21:17)
[2021-12-04 09:27] LABS: African American GFR (CKD) 114.8 (60.0-200.0); Anion Gap 12.7 mmol/L (10.00-18.00); BUN/Creat Ratio 12.43 Ratio (12.00-20.00); Blood Urea Nitrogen 8.7 mg/dL (9.0-27.0); Calcium 8.3 mg/dL (8.7-10.3); Carbon Dioxide 27.3 mmol/L (20.0-27.5); Magnesium 2.4 mg/dL (1.5-2.4); Potassium 3.2 mmol/L (3.5-5.5)
[2021-12-04] MEDS: POTASSIUM CHLORIDE ER 20 MEQ TAB.ER PO SCH ×2 (10:14→11:55)
[2021-12-04 11:30] LABS: Glucose,Whole Blood 230 mg/dL (70-110)
[2021-12-04 16:35] LABS: Glucose,Whole Blood 169 mg/dL (70-110)
--- NOTE | 2021-12-04 17:27 | P.PN ---
Subjective This is a 66-year-old male who presented to the emergency department with increasing weakness and patient reports to having falls more frequently over the last week or so and came to the ER for further evaluation. Patient reports his weakness became so severe he was unable to stand up. Patient denies any previous injury and has been falling more frequently. Patient follows with Dr. Parker in the outpatient setting and has a past medical history of COPD, hypertension, osteoarthritis and chronic back pain and reports to being on a pain contract with Dr. Aldridge with morphine. Patient underwent CT of the brain which showed a normal unenhanced head CT and clearing of a subdural hemorrhage over the right temporal lobe compared to old exam. Looking back further into the chart on November 162020 patient did have a fall with injury and possible LOC and there was a small right-sided subdural hematoma with minimal pneumocephalus and no definitive calvarial fracture noted with no acute abnormality of the cervical spine. EKG showed sinus tachycardia with a heart rate of 120. Patient was admitted for new onset diabetes with blood sugars over 600. Patient was given a dose of IV insulin and will initiate sliding scale along with Accu-Cheks before meals and at bedtime and obtain a hemoglobin A1c. Patient was also found to be febrile at 99.9 and currently 94% on room air. Patient was given a dose of Zithromax and ceftriaxone and also IV fluids. Patient denies tobacco use and denies recent marijuana use although urine was positive for marijuana and opiates. Patient does have a pain contract with pain management and receives morphine for chronic back pain. Patient does admit to excessive thirst with polyuria and polydipsia and did have occasional nausea and vomiting over the last week. COVID-19 was negative. 11/30/2021 Patient is seen in follow-up this morning blood sugars improved and patient is maintained on long-acting along with sliding scale with Accu-Cheks before meals and at bedtime. Patient having temps with T-max 103 last night and will obtain urine culture, blood cultures, chest x-ray, and sputum culture and also influenza testing. Patient denies any chest pain or shortness of breath. Patient does have some cough with rhonchi noted on exam and reports that he does use inhalers in the outpatient setting. Will reorder albuterol inhaler. Will initiate ceftriaxone with follow-up blood cultures. Patient has been receiving education regarding subcutaneous injections and dietary modifications secondary to new onset diabetes. Will also order incentive spirometer. 12/01/2021 Patient is seen this morning currently afebrile although did spike temps early this morning of 101.1 and will consult infectious disease for possible pneumonia. Patient is continuing with incentive spirometer use and encourage the patient to continue using 10 times every hour while awake. Patient also continued on oral Zithromax along with IV ceftriaxone and cultures have been obtained. Blood cultures have been negative. Sputum culture has been ordered and not collected. Patient continues to request to go home, but will have ID evaluate and follow up on cultures. Recommend repeat chest xray in the am and also repeat labs. Patient has been self injecting his insulins and doing well in terms of new onset diabetes. Hemoglobin A1c is 12.5. Patient denies any chest pain or shortness of breath. Patient is tolerating diet with no reports of nausea or vomiting noted. 12/02/2021 Patient presents because of falling at home, he had evidence of new onset diabetes mellitus on admission and he was started on Levemir 15 units daily plus sliding scale. Also he had high grade fever 101 103, pneumonia as suspected, infectious disease team consulted, patient kept on ceftriaxone and Zithromax and CT of the chest ordered Procol stone in his elevated 16.1 and 5.0 Hemoglobin A1c is 12.5% Original antigen is pending as well as sputum culture 12/03/21 Patient still diagnosed with pneumonia and been treated with ceftriaxone and Zithromax. He has no fever and leukocytosis though. He looks comfortable fully awake and oriented, no significant respiratory signs. However patient has exertional dyspnea and his CT of the chest showed left lower lobe pneumonia. Sputum culture growing Marisabel Post production gallstone in comment on to 5.0. 12/05/2019 Patient respiratory status improving. He is awake and alert with no respiratory distress He's on room air and hemodynamically stable. No more fever. Labs and vitals stable and low potassium replaced. Her MS on ceftriaxone and Zithromax and insulin contour He has constipation but declines laxative. He has good appetite but does not like the hospital food. No more vomiting Objective - Vital Signs Vital signs: Vital Signs Temp 98.4 F 12/04/21 07:09 Pulse 74 12/04/21 08:05 Resp 18 12/04/21 07:15 BP 145/90 12/04/21 07:09 Pulse Ox 95 12/04/21 07:09 FiO2 Intake & Output 12/03/21 12/04/21 12/04/21 18:59 06:59 18:59 Intake Total 900 Balance 900 Intake: Intake, IV Titration 400 Amount Sodium Chloride 0.9% 1, 350 000 ml @ 50 mls/hr IV . Q20H GALLO Rx#:[id number] cefTRIAXone 2 gm In 50 Sodium Chloride 0.9% 50 ml @ 100 mls/hr IVPB Q24HR GALLO Rx#:[id number] Oral 500 Other: Voiding Method Toilet Toilet Toilet # Voids 4 1 - Exam GENERAL: The patient is alert and oriented x3, not in any acute distress. Well developed, well nourished. HEENT: Pupils are round and equally reacting to light. EOMI. No scleral icterus. No conjunctival pallor. Normocephalic, atraumatic. No pharyngeal erythema. No thyromegaly. CARDIOVASCULAR: S1 and S2 present. No murmurs, rubs, or gallops. PULMONARY: Chest is clear to auscultation, no wheezing or crackles. ABDOMEN: Soft, nontender, nondistended, normoactive bowel sounds. No palpable organomegaly. MUSCULOSKELETAL: No joint swelling or deformity. EXTREMITIES: No cyanosis, clubbing, or pedal edema. NEUROLOGICAL: Gross neurological examination did not reveal any focal deficits. SKIN: No rashes. no petechiae. - Labs CBC & Chem 7: 12/03/21 06:25 12/04/21 05:44 Labs: Abnormal Lab Results - Last 24 Hours (Table) 12/03/21 12/03/21 12/04/21 Range/Units 11:29 20:39 02:13 Potassium (3.5-5.5) mmol/L BUN (9.0-27.0) mg/dL Glucose (70-110) mg/dL POC Glucose (mg/dL) 312 H 135 H 132 H (70-110) mg/dL Calcium (8.7-10.3) mg/dL 12/04/21 12/04/21 12/04/21 Range/Units 05:44 05:59 06:41 Potassium 3.2 L (3.5-5.5) mmol/L BUN 8.7 L (9.0-27.0) mg/dL Glucose 120 H (70-110) mg/dL POC Glucose (mg/dL) 126 H 121 H (70-110) mg/dL Calcium 8.3 L (8.7-10.3) mg/dL Microbiology - Last 24 Hours (Table) 12/01/21 15:25 Gram Stain - Final Sputum Sputum Culture - Final Marisabel albicans 11/30/21 11:04 Blood Culture - Preliminary Blood No Growth after 72 hours Assessment and Plan Assessment: Possible pneumonia Elevated blood sugars, new onset diabetes mellitus, uncontrolled with hyperglycemia Hypertension Polyuria, polydipsia COPD, not in exacerbation Fevers with mild leukocytosis of unknown origin possibly secondary to acute pneumonia, will initiate blood cultures, sputum culture, repeat chest x-ray, and start antibiotics, consult to ID placed Hyponatremia, possibly hypovolemic hyponatremia Secondary to excessive polydipsia Osteoarthritis Chronic back pain on pain management contract Positive marijuana on urine drug screen Plan: This is a pleasant 66 years old male who presents with fall, new diabetes and possible pneumonia Continue with ceftriaxone on Rocephin Follow-up culture results and legionella antigen in the urine Infectious disease team on the case Continue with insulin Levemir and insulin sliding scale and monitor glucose. Labs and medication were reviewed.. Continue same treatment. Continue with symptomatic treatment. Resume home medication. Monitor lytes and vitals. DVT and GI prophylaxis. Further recommendations as per clinical course of the patient DVT prophylaxis: Subcutaneous heparin GI Prophylaxis: Pepcid Prognosis is guarded
[2021-12-04 20:31] LABS: Glucose,Whole Blood 213 mg/dL (70-110)
[2021-12-04] MEDS: traZODone HCL 100 MG TAB PO SCH (21:19)
[2021-12-05 02:07] LABS: Glucose,Whole Blood 133 mg/dL (70-110)
[2021-12-05] MEDS: MORPHINE SULFATE ER 60 MG TABLET PO SCH ×2 (02:14→14:05)
[2021-12-05 06:50] LABS: Glucose,Whole Blood 164 mg/dL (70-110)
[2021-12-05 07:53] VITALS: BP 144/91; RESP 16; TEMP 98
[2021-12-05] MEDS: INSULIN DETEMIR (LEVEMIR) 100 UNIT/ML SYR SQ SCH (07:59)
[2021-12-05] MEDS: INSULIN ASPART (NovoLOG) 100 UNIT/ML VIAL SQ SCH ×2 (07:59→13:02)
[2021-12-05] MEDS: HEPARIN SODIUM,PORCINE/PF 5,000 UNIT/0.5 ML SYRINGE SQ SCH (08:00)
[2021-12-05] MEDS: METOPROLOL SUCCINATE (ER) 50 MG TAB.ER.24H PO SCH (08:01)
[2021-12-05] MEDS: FAMOTIDINE 20 MG TAB PO SCH (08:01)
[2021-12-05] MEDS: HYDROcodone/APAP 7.5-325MG 1 EACH TAB PO SCH (08:01)
--- NOTE | 2021-12-05 08:06 | P.PN ---
Subjective Progress Note Date: 12/04/21 Principal diagnosis: Pneumonia Patient is a 66 year male with a past medical history significant for smoking with the patient has quit many years ago presenting to the hospital for weakness fall patient was noticed to be febrile and evidence of right-sided pneumonia. On today's evaluation that is 12/04/2021, the patient denies any fever or any chills, the patient is breathing comfortably on room air the patient denies having any chest pain, the patient cough has decreased intensity and did not bring up any sputum no nausea no vomiting and diarrhea Objective - Vital Signs Vital signs: Vital Signs Temp 97.5 F L 12/04/21 13:38 Pulse 93 12/04/21 13:38 Resp 18 12/04/21 13:38 BP 143/88 12/04/21 13:38 Pulse Ox 97 12/04/21 13:38 FiO2 Intake & Output 12/03/21 12/04/21 12/04/21 18:59 06:59 18:59 Intake Total 900 Balance 900 Intake: Intake, IV Titration 400 Amount Sodium Chloride 0.9% 1, 350 000 ml @ 50 mls/hr IV . Q20H G[facility] Rx#:[id number] cefTRIAXone 2 gm In 50 Sodium Chloride 0.9% 50 ml @ 100 mls/hr IVPB Q24HR GALLO Rx#:[id number] Oral 500 Other: Voiding Method Toilet Toilet Toilet # Voids 4 1 - Exam GENERAL DESCRIPTION: An elderly male lying in bed in no distress RESPIRATORY SYSTEM: Unlabored breathing , decreased breath sounds at bases HEART: S1 S2 regular rate and rhythm , ABDOMEN: Soft , no tenderness EXTREMITIES: No edema feet - Labs CBC & Chem 7: 12/03/21 06:25 12/04/21 05:44 Labs: Abnormal Lab Results - Last 24 Hours (Table) 12/03/21 12/04/21 12/04/21 Range/Units 20:39 02:13 05:44 Potassium 3.2 L (3.5-5.5) mmol/L BUN 8.7 L (9.0-27.0) mg/dL Glucose 120 H (70-110) mg/dL POC Glucose (mg/dL) 135 H 132 H (70-110) mg/dL Calcium 8.3 L (8.7-10.3) mg/dL 12/04/21 12/04/21 12/04/21 Range/Units 05:59 06:41 11:28 Potassium (3.5-5.5) mmol/L BUN (9.0-27.0) mg/dL Glucose (70-110) mg/dL POC Glucose (mg/dL) 126 H 121 H 230 H (70-110) mg/dL Calcium (8.7-10.3) mg/dL Microbiology - Last 24 Hours (Table) 11/30/21 11:04 Blood Culture - Preliminary Blood No Growth after 96 hours 12/01/21 15:25 Gram Stain - Final Sputum Sputum Culture - Final Marisabel albicans Assessment and Plan (1) Pneumonia Current Visit: Yes Status: Acute Code(s): J18.9 - PNEUMONIA, UNSPECIFIED ORGANISM SNOMED Code(s): 234955001 Plan: 1patient presented to hospital with sepsis and respiratory have fever elevated white count source likely pneumonia however the patient did have a significant history of smoking and concern for masslike opacity underlying malignancy or com plicated pneumonia need to be ruled out in view of persistent fever. 2patient did have CT of the chest which was suggestive of pneumonia no evidence of mass or parapneumonic effusion 3 urine for Legionella antigen came back negative 4patient is clinically improving and the fever has resolved, patient will continue with Rocephin and Zithromax with the plan to finish therapy with oral Augmentin and close outpatient follow-up Time with Patient: Less than 30
[2021-12-05] MEDS: ALBUTEROL NEBULIZED 2.5 MG/3 ML INHALATION SCH ×2 (08:54→11:52)
[2021-12-05 09:04] VITALS: PULSE 90
[2021-12-05 10:44] LABS: African American GFR (CKD) >90 (>60 ml/min/1.73 sqM); Anion Gap 7 mmol/L; Blood Urea Nitrogen 12 mg/dL (9-20); Calcium 8.8 mg/dL (8.4-10.2); Carbon Dioxide 28 mmol/L (22-30); Chloride 103 mmol/L (98-107); Glucose 243 mg/dL (74-99); Non-African American GFR(CKD) >90 (>60 ml/min/1.73 sqM); Potassium 4.8 mmol/L (3.5-5.1); Sodium 138 mmol/L (137-145)
[2021-12-05 11:13] LABS: Glucose,Whole Blood 206 mg/dL (70-110)
--- NOTE | 2021-12-07 09:53 | P.DS ---
Providers Date of admission: 11/29/21 01:17 Expected date of discharge: 12/05/21 Attending physician: Joshua Ewing Consults: 12/01/21 11:20 Consult Physician Routine Consulting Provider: Mellissa Gusman Consult Reason/Comments: Pneumonia, continued fevers Do you want consulting provider notified?: Yes Primary care physician: Elena Rutledge Hospital Course: Final diagnosis Possible pneumonia, present on admission Elevated blood sugars, new onset diabetes mellitus, uncontrolled with hyperglycemia Hypertension Polyuria, polydipsia COPD, not in exacerbation Fevers with mild leukocytosis of unknown origin possibly secondary to acute pneumonia Hyponatremia, possibly hypovolemic hyponatremia Secondary to excessive polydipsia Osteoarthritis Chronic back pain on pain management contract Positive marijuana on urine drug screen Discharge disposition Patient is being discharged in a stable condition with guarded prognosis to home. Patient will follow-up with Dr. Parker in the outpatient setting upon discharge. Patient is to continue with oral Augmentin twice daily for the next 1 week . New onset diabetes and recommend outpatient diabetic education along with following up with endocrine. Patient is being started on insulins on discharge. Total time taken is greater than 35 minutes. Hospital course This is a 66-year-old male who was recently admitted weakness, frequent falls and found to be new onset diabetes mellitus and was being closely monitored. Hemoglobin A1c was elevated at 12.5 and will be initiated on insulins. Diabetic education during hospitalization along with dietitian consult. Patient also having some fevers and cultures have been negative and patient was initiated on antibiotics. Patient's sputum culture did finalized showing Marisabel albicans and will continue on oral Augmentin and will also provide patient with a few days of Diflucan on discharge. Patient has been afebrile and is extremely anxious to go home. Recommend the patient follow-up with primary care provider along with endocrine in the outpatient setting. Patient also follows with pain management and recommend continue current regimen. Currently no reports of c hest pain, shortness of breath, or palpitations. Patient is afebrile. No reports of nausea or vomiting and patient is tolerating diet. Patient will be discharged home today. Physical exam: Gen: This is a 66-year-old male awake, alert and oriented 3, thin built, well- developed HEENT: Head is atraumatic, normocephalic. Pupils equal, round. Sclerae is anicteric. NECK: Supple. No JVD. No lymphadenopathy. No thyromegaly. LUNGS: Clear to auscultation. No wheezes or rhonchi. No intercostal retractions. HEART: Regular rate and rhythm. No murmur. ABDOMEN: Soft. Bowel sounds are present. No masses. No tenderness. EXTREMITIES: No pedal edema. No calf tenderness. NEUROLOGICAL: Patient is awake, alert and oriented x3. Cranial nerves 2 through 12 are grossly intact. Please refer to medication reconciliation sheet for a list of medications. The impression and plan of care has been dictated by Lyn Alcala, Nurse Practitioner as directed. Dr. Cami MD I have performed a history and examination and MDM of this patient, discussed the same with the dictator, and agree with the dictator's assessment and plan as written ,documented as a scribe. Based on total visit time, I have performed more than 50% of the visit. Patient Condition at Discharge: Stable Plan - Discharge Summary Discharge Rx Participant: No New Discharge Prescriptions: New Amoxic-Pot Clav 875-125Mg [Augmentin 875-125] 1 tab PO Q12HR 7 Days #14 tab Insulin Detemir (Levemir) [Levemir] 15 unit SQ DAILY 30 Days #5 each INSULIN ASPART (NovoLOG) [NovoLOG (formulary)] 3 unit SQ ACHS 30 Days #5 each Continue HYDROcodone/APAP 7.5-325MG [Heartwell 7.5-325] 1 tab PO BID Morphine Sulfate [Ms Contin] 60 mg PO Q12H Metoprolol Succinate (ER) [Toprol XL] 50 mg PO DAILY traZODone HCL 100 mg PO HS Discharge Medication List HYDROcodone/APAP 7.5-325MG [Heartwell 7.5-325] 1 tab PO BID 01/30/14 [History] Morphine Sulfate [Ms Contin] 60 mg PO Q12H 11/29/15 [History] Metoprolol Succinate (ER) [Toprol XL] 50 mg PO DAILY 04/27/17 [History] traZODone HCL 100 mg PO HS 11/16/20 [History] Amoxic-Pot Clav 875-125Mg [Augmentin 875-125] 1 tab PO Q12HR 7 Days #14 tab 12/05/21 [Rx] INSULIN ASPART (NovoLOG) [NovoLOG (formulary)] 3 unit SQ ACHS 30 Days #5 each 12/05/21 [Rx] Insulin Detemir (Levemir) [Levemir] 15 unit SQ DAILY 30 Days #5 each 12/05/21 [Rx] Follow up Appointment(s)/Referral(s): Aamir Parker MD [Primary Care Provider] - 12/08/21 9:30 am [facility] [NON-STAFF] - As Needed (Call to see if [facility] has a shower chair. ) Hari Romero MD [REFERRING] - 1 Week ([facility] a [facility] ) Diabetes Education,[facility] [NON-STAFF] - As Needed (Call to inquire about diabetic classes and resources. ) [facility] [NON-STAFF] - As Needed (Call to see if [facility] has a shower chair. ) Patient Instructions/Handouts: Type 2 Diabetes in Adults: New Diagnosis (GEN) Activity/Diet/Wound Care/Special Instructions: Activity Limited until follow-up Follow-up with primary care provider this week Continue following with pain management with Dr. Aldridge Continue to monitor blood sugars before meals and at bedtime and keep a diary for primary care follow-up Follow-up with endocrine Continue with consistent carb diabetic diet Continue monitoring Accu-Cheks before meals and at bedtime and keep a diary for primary along with endocrine follow-up Continue with antibiotics for 1 week NovoLog sliding scale 0-150 equals 0 units 151-200 equals 2 units 201-250 equals 4 units 251-300 equals 6 units 301-350 equals 8 units 351-400 equals 10 units Please notify provider if blood sugar is 400 or above Discharge Disposition: HOME SELF-CARE
--- NOTE | 2021-12-08 10:46 | CDI ---
Documentation Clarification Form Date: 12/08/2021 10:28:44 AM From: Margy Zazueta Phone: Admit Date: 11/29/2021 01:17:00 AM Patient Name: Herbert Sanders Visit Number: [id number] Discharge Date: 12/05/2021 02:23:00 PM ATTENTION: The Clinical Documentation Specialists (CDI) and [facility] Coding Staff appreciate your assistance in clarifying documentation. Please respond to the clarification below the line at the bottom and electronically sign. The CDI & [facility] Coding staff will review the response and follow-up if needed. Please note: Queries are made part of the Legal Health Record. If you have any questions, please contact the author of this message via ITS. Dr. Joshua Ewing The patient presented with the following clinical indicators. Additional clarification regarding the etiology/cause of the clinical indicators is requested. History/Risk Factors: 66 yo M, HP elevated, HTN, polydipsia COPD, Fevers with mild leukocytosis, DKA, hypovolemic, hyponatremia Clinical Indicators: WBC: 13.6H 11/28/21 13.9H 11/29/21 8.1 12/01/21 3.77 L 12/03/21 Blood cultures: [id number] 11/29/21 Vitals signs: Temperature 99.9 F H; Pulse Rate 141 H; Respiratory 20 Rate; [id number]; pO2 Sat 94 L Treatment: likelypneumoniahowever the patient did have a significant history of smokingand concern for mass likeopacityunderlyingmalignancyor complicatedpneumonianeed toberuled outin view ofpersistentfever. Antibiotics: continue with Rocephin and Zithromax. In your professional opinion, please clarify if these findings signify one of the following conditions: [ ] Sepsis POA [ ] Sepsis, Not POA [ ] Sepsis ruled out [ ] Severe Sepsis with organ failure [ ] Septic Shock [ ] SIRS, without underlying infectious process [ ] Other, please specify [ ] Unable to determine SIRS Criteria: 2 or more of the following may indicate SIRS -Temperature < 96.8F (36C) or > 101.0F (38.3C) -Heart Rate > 90 bpm -Respiratory Rate > 20 breaths/min or PaCO2 < 32 mmHg -White Blood Cell Count > 12,000 or < 4,000 cells/mm3 or > 10% bands (Template Last Reviewed: June 2020) [facility]
--- NOTE | 2021-12-12 21:56 | CDI ---
Documentation Clarification Form Date: 12/12/2021 09:52:26 PM From: Margy Zazueta Admit Date: 11/29/2021 01:17:00 AM Patient Name: Herbert Sanders Visit Number: [id number] Discharge Date: 12/05/2021 02:23:00 PM ATTENTION: The Clinical Documentation Specialists (CDI) and [facility] Coding Staff appreciate your assistance in clarifying documentation. Please respond to the clarification below the line at the bottom and electronically sign. The CDI & [facility] Coding staff will review the response and follow-up if needed. Please note: Queries are made part of the Legal Health Record. If you have any questions, please contact the author of this message via ITS. Dr. Buck Almanza The patient presented with the following clinical indicators. Additional clarification regarding the etiology/cause of the clinical indicators is requested. History/Risk Factors: 66 yo M, HP elevated, HTN, polydipsia COPD, Fevers with mild leukocytosis, DKA, hypovolemic, hyponatremia Clinical Indicators: WBC: 13.6H 11/28/21 13.9H 11/29/21 8.1 12/01/21 3.77 L 12/03/21 Blood cultures: [id number] 11/29/21 Vitals signs: Temperature 99.9 F H; Pulse Rate 141 H; Respiratory 20 Rate; Blood Pressure 132/79; pO2 Sat 94 L Treatment: likely pneumonia however the patient did have a significant history of smoking and concern for mass like opacity underlying malignancy or complicated pneumonia need to be ruled out in view of persistent fever. Antibiotics: continue with Rocephin and Zithromax. In your professional opinion, please clarify if these findings signify one of the following conditions: [ ] Sepsis POA [ ] Sepsis, Not POA [ ] Sepsis ruled out [ ] Severe Sepsis with organ failure [ ] Septic Shock [ ] SIRS, without underlying infectious process [ ] Other, please specify [ ] Unable to determine SIRS Criteria: 2 or more of the following may indicate SIRS -Temperature < 96.8F (36C) or > 101.0F (38.3C) -Heart Rate > 90 bpm -Respiratory Rate > 20 breaths/min or PaCO2 < 32 mmHg -White Blood Cell Count > 12,000 or < 4,000 cells/mm3 or > 10% bands MTDD
--- NOTE | 2021-12-12 23:33 | P.PN ---
Subjective Progress Note Date: 12/05/21 Principal diagnosis: Pneumonia Patient is a 66 year male with a past medical history significant for smoking with the patient has quit many years ago presenting to the hospital for weakness fall patient was noticed to be febrile and evidence of right-sided pneumonia. On today's evaluation that is 12/05/2021, the patient remains to be afebrile, the patient is breathing comfortably on room air , the patient denies having any chest pain, the patient cough has decreased intensity and mostly dry in nature, the patient denies nausea no vomiting and diarrhea Objective - Vital Signs Vital signs: Vital Signs Temp 98.0 F 12/05/21 07:52 Pulse 90 12/05/21 09:03 Resp 16 12/05/21 07:52 BP 144/91 12/05/21 07:52 Pulse Ox 97 12/05/21 07:52 FiO2 Intake & Output 12/04/21 12/05/21 12/05/21 18:59 06:59 18:59 Other: Voiding Method Toilet Toilet # Voids 3 2 - Exam GENERAL DESCRIPTION: An elderly male lying in bed in no distress RESPIRATORY SYSTEM: Unlabored breathing , decreased breath sounds at bases HEART: S1 S2 regular rate and rhythm , ABDOMEN: Soft , no tenderness EXTREMITIES: No edema feet - Labs CBC & Chem 7: 12/03/21 06:25 12/05/21 10:08 Labs: Abnormal Lab Results - Last 24 Hours (Table) 12/04/21 12/04/21 12/05/21 Range/Units 16:33 20:29 02:05 Creatinine (0.66-1.25) mg/dL Glucose (74-99) mg/dL POC Glucose (mg/dL) 169 H 213 H 133 H (70-110) mg/dL 12/05/21 12/05/21 12/05/21 Range/Units 06:49 10:08 11:12 Creatinine 0.60 L (0.66-1.25) mg/dL Glucose 243 H (74-99) mg/dL POC Glucose (mg/dL) 164 H 206 H (70-110) mg/dL Microbiology - Last 24 Hours (Table) 11/30/21 11:04 Blood Culture - Preliminary Blood No Growth after 96 hours Assessment and Plan (1) Pneumonia Status: Acute Code(s): J18.9 - PNEUMONIA, UNSPECIFIED ORGANISM SNOMED Code(s): 121554317 Plan: 1patient presented to hospital with sepsis and respiratory have fever elevated white count source likely pneumonia however the patient did have a significant history of smoking and concern for masslike opacity underlying malignancy or complicated pneumonia need to be ruled out in view of persistent fever. 2patient did have CT of the chest which was suggestive of pneumonia no evidence of mass or parapneumonic effusion 3 urine for Legionella antigen came back negative 4patient has shown overall clinical improvement plan is to finish therapy with oral Augmentin with close outpatient follow-up
--- NOTE | 2021-12-23 15:25 | CDI ---
Documentation Clarification Form Date: 12/23/2021 03:17:53 PM From: Margy Zazueta Phone: Admit Date: 11/29/2021 01:17:00 AM Patient Name: Herbert Sanders Visit Number: [id number] Discharge Date: 12/05/2021 02:23:00 PM ATTENTION: The Clinical Documentation Specialists (CDI) and [facility] Coding Staff appreciate your assistance in clarifying documentation. Please respond to the clarification below the line at the bottom and electronically sign. The CDI & [facility] Coding staff will review the response and follow-up if needed. Please note: Queries are made part of the Legal Health Record. If you have any questions, please contact the author of this message via ITS. Dr. Joshua Ewing The previous query was signed without a response so I am re-submitting a query. The patient presented with the following clinical indicators. Additional clarification regarding the etiology/ cause of the clinical indicators is requested. History/Risk Factors: 66 yo M, HP elevated, HTN, polydipsia COPD, Fevers with mild leukocytosis, DKA, hypovolemic, hyponatremia Clinical Indicators: WBC: 13.6H 11/28/21 13.9H 11/29/21 8.1 12/01/21 3.77 L 12/03/21 Blood cultures: [id number] 11/29/21 Vitals signs: Temperature 99.9 F H; Pulse Rate 141 H; Respiratory 20 Rate; Blood Pressure 132/79; pO2 Sat 94 L Treatment: likely pneumonia however the patient did have a significant history of smoking and concern for mass like opacity underlying malignancy or complicated pneumonia need to be ruled out in view of persistent fever. Antibiotics: continue with Rocephin and Zithromax. In your professional opinion, please clarify if these findings signify one of the following conditions: [ ] Sepsis POA [ ] Sepsis, Not POA [ ] Sepsis ruled out [ ] Severe Sepsis with organ failure [ ] Septic Shock [ ] Other, please specify [ ] Unable to determine SIRS Criteria: 2 or more of the following may indicate SIRS -Temperature < 96.8F (36C) or > 101.0F (38.3C) -Heart Rate > 90 bpm -Respiratory Rate > 20 breaths/min or PaCO2 < 32 mmHg -White Blood Cell Count > 12,000 or < 4,000 cells/mm3 or > 10% bands (Template Last Reviewed: June 2020) MTDD
--- NOTE | 2022-01-05 10:34 | CDI ---
Documentation Clarification Form Date: 01/05/22 From: Margy Zazueta Admit Date: 11/29/2021 01:17:00 AM Patient Name: Herbert Sanders Visit Number: [id number] Discharge Date: 12/05/2021 02:23:00 PM ATTENTION: The Clinical Documentation Specialists (CDI) and [facility] Coding Staff appreciate your assistance in clarifying documentation. Please respond to the clarification below the line at the bottom and electronically sign. The CDI & [facility] Coding staff will review the response and follow-up if needed. Please note: Queries are made part of the Legal Health Record. If you have any questions, please contact the author of this message via ITS. Dr. Buck Almanza The previous query was signed without a response therefore I am re-submitting this query. The patient presented with the following clinical indicators. Additional clarification regarding the etiology/ cause of the clinical indicators is requested. History/Risk Factors: 66 yo M, HP elevated, HTN, polydipsia COPD, Fevers with mild leukocytosis, DKA, hypovolemic, hyponatremia Clinical Indicators: WBC: 13.6H 11/28/21 13.9H 11/29/21 8.1 12/01/21 3.77 L 12/03/21 Blood cultures: [id number] 11/29/21 Vitals signs: Temperature 99.9 F H; Pulse Rate 141 H; Respiratory 20 Rate; Blood Pressure 132/79; pO2 Sat 94 L Treatment: likely pneumonia however the patient did have a significant history of smoking and concern for mass like opacity underlying malignancy or complicated pneumonia need to be ruled out in view of persistent fever. Antibiotics: continue with Rocephin and Zithromax. In your professional opinion, please clarify if these findings signify one of the following conditions: [ ] Sepsis POA [ ] Sepsis, Not POA [ ] Sepsis ruled out [ ] SIRS, without underlying infectious process [ ] Other, please specify [ x] Unable to determine MTDD
== END 2021-12-05 14:23 | disposition home or self-care (01) | DRG 637 ==
LOC: EC 20:56 → 4SSUR 11-29 01:17
PROVIDERS: ADMIT Hospitalist; ATTEND Hospitalist
DX: E11.10 Type 2 diabetes mellitus with ketoacidosis without coma (principal); B37.1 Pulmonary candidiasis; J44.0 Chronic obstructive pulmonary disease with (acute) lower respiratory infection; I10 Essential (primary) hypertension; M19.90 Unspecified osteoarthritis, unspecified site; M51.36 Other intervertebral disc degeneration, lumbar region; G89.29 Other chronic pain; R00.0 Tachycardia, unspecified; W19.XXXA Unspecified fall, initial encounter; R29.6 Repeated falls; E86.1 Hypovolemia; K59.00 Constipation, unspecified; R26.81 Unsteadiness on feet; R91.8 Other nonspecific abnormal finding of lung field; K80.20 Calculus of gallbladder without cholecystitis without obstruction; Y92.009 Unspecified place in unspecified non-institutional (private) residence as the place of occurrence of the external cause; Z20.822 Contact with and (suspected) exposure to COVID-19; Z87.891 Personal history of nicotine dependence; Z91.81 History of falling; Z87.820 Personal history of traumatic brain injury; Z79.899 Other long term (current) drug therapy; Z88.8 Allergy status to other drugs, medicaments and biological substances; Z83.3 Family history of diabetes mellitus
CPT/HCPCS: 36415; 70450; 71045; 71046; 71260; 80048; 80053; 80306; 80320; 81001; 82009; 82140; 83036; 83735; 83880; 84145; 84484; 85025; 85610; 85730; 86140; 87040; 87070; 87205; 87449; 87502; 87635; 93005; 94640; 94760; 96361; 96365; 96366; 96375; 99282; 99285

== ENCOUNTER → 2022-11-16 | Outpatient (CLI) | payer MEDICARE ==
--- NOTE | 2022-11-16 15:58 | XR ---
EXAMINATION TYPE: XR lumbosacral spine min 4V DATE OF EXAM: 11/16/2022 3:53 PM INDICATION: Patient age:Male; 67 years old; Reason for study: M54.50; [facility]. COMPARISON: MRI lumbar spine 04/14/2013 TECHNIQUE: Frontal, lateral , bilateral oblique and coned in L5-S1 lateral views of the spine. FINDINGS: There are 5 lumbar type vertebral bodies identified. No evidence of any acute osseous patho logy. No evidence of loss of vertebral body height is seen. Mild endplate sclerosis with disc space narrowing at L3-4 and L4-5. Lower lumbar spine facet arthropathy at L4-5 and L5-S1. There is normal a lignment of the lumbar vertebral bodies. Atherosclerotic calcification of the aorta. IMPRESSION: 1. No acute process. 2. Mild multilevel degenerative disc disease of the lower lumbar spine.
== END | disposition home or self-care (01) ==
LOC: RADXRMAIN 15:32
PROVIDERS: ATTEND Physical Medicine & Rehabilitation
DX: M51.36 Other intervertebral disc degeneration, lumbar region (principal)
CPT/HCPCS: 72110

== ENCOUNTER 2023-07-03 10:30 | Day surgery (SDC) | payer MEDICARE ==
[~2023-07-03 10:30] MED LIST: LACTATED RINGERS 1,000 ML IV SCH; LIDOCAINE 1% (10MG/ML) FOR IV START INTRADERMA PRN; ONDANSETRON 4 MG/2 ML VIAL IVP PRN
[2023-07-03 10:58] LABS: Glucose,Whole Blood 160 mg/dL (70-110)
[2023-07-03] MEDS: LACTATED RINGERS 1,000 ML IV ONE (10:59)
[2023-07-03 11:07] VITALS: RESP 16; TEMP 98.3
[2023-07-03] MEDS ORDERED: PROPOFOL 10 MG/ML 20 ML VIAL IV ONE (11:14)
--- NOTE | 2023-07-03 11:17 | P.GSHP ---
History of Present Illness H&P Date: 07/03/23 Chief Complaint: Colon cancer screening 67-year-old male here for colonoscopy. He has not had one previously. No bowel complaints. Family history of colon cancer in mother and sister. Past Medical History Past Medical History: COPD, Diabetes Mellitus, Hyperlipidemia, Hypertension, Osteoarthritis (OA) Additional Past Medical History / Comment(s): Routine colonoscopy. chronic back pain-L4 degeneration History of Any Multi-Drug Resistant Organisms: None Reported Past Surgical History: Orthopedic Surgery Additional Past Surgical History / Comment(s): Bilateral clavicle Past Anesthesia/Blood Transfusion Reactions: No Reported Reaction Smoking Status: Former smoker - Past Family History Mother Family Medical History: Diabetes Mellitus Brother(s) Family Medical History: Diabetes Mellitus Medications and Allergies Home Medications Medication Instructions Recorded Confirmed Type HYDROcodone/APAP 7.5-325MG [Fidelity 1 tab PO BID 01/30/14 07/02/23 History 7.5-325] Morphine Sulfate [Ms Contin] 60 mg PO Q12H 11/29/15 07/02/23 History Metoprolol Succinate (ER) [Toprol 50 mg PO QAM 04/27/17 07/02/23 History XL] traZODone HCL 100 mg PO HS 11/16/20 07/02/23 History Glimepiride [Amaryl] 0.5 mg PO QAM 07/02/23 07/03/23 History Rosuvastatin Calcium 5 mg PO HS 07/02/23 07/02/23 History Allergies Allergy/AdvReac Type Severity Reaction Status Date / Time celecoxib [From Celebrex] Allergy Swelling Verified 07/03/23 10:43 Surgical - Exam Vital Signs Temp Pulse Resp BP Pulse Ox 98.3 F 71 16 150/84 96 07/03/23 10:53 07/03/23 10:53 07/03/23 10:53 07/03/23 10:53 07/03/23 10:53 Physical exam: General: Well-developed, well-nourished HEENT: Normocephalic, sclerae nonicteric Abdomen: Nontender, nondistended Extremities: No edema Neuro: Alert and oriented Results - Labs Abnormal Lab Results - Last 24 Hours (Table) 07/03/23 Range/Units 10:55 POC Glucose (mg/dL) 160 H (70-110) mg/dL Assessment and Plan (1) Cancer screening Narrative/Plan: Will proceed with colonoscopy at this time. Current Visit: Yes Status: Acute Code(s): Z12.9 - ENCOUNTER FOR SCREENING FOR MALIGNANT NEOPLASM, SITE UNSP SNOMED Code(s): 418975202
--- NOTE | 2023-07-03 11:30 | P.PCN ---
Date of Procedure: 07/03/23 Procedure(s) Performed: PREOPERATIVE DIAGNOSIS: Colon cancer screening, family history of colon cancer POSTOPERATIVE DIAGNOSIS: Sigmoid colon polyp, diverticulosis, mild left-sided colitis PROCEDURE: Colonoscopy with snare polypectomy and biopsy ANESTHESIA: MAC SURGEON: Jeferson Agarwal M.D. SPECIMENS: Colitis, sigmoid polyp ENDOSCOPIC PROCEDURE: The patient was placed on the endoscopy table in the left decubitus position. The Olympus colonoscope was inserted into the anus and passed under direct visualization to the base of the cecum. The appendiceal orifice was visualized. From that point the scope was slowly withdrawn inspecting all surfaces carefully. There were no neoplastic inflammatory or polypoid lesions throughout the cecum, ascending, and transverse colon. In the descending and rectum there was mild punctate erythema of the mucosa visualized. Biopsies were taken. No ulcerations were seen. This was relatively mild. Rectum was spared. In the sigmoid colon a small polyp was seen and removed using the snare with cautery technique. The remainder of the sigmoid and rectum was normal. The patient had mild scattered diverticulosis. Digital rectal examination was normal. The patient was taken to the recovery room in stable condition per anesthesia guidelines. RECOMMENDATIONS: Await biopsy results. Repeat colonoscopy 5 years.
[2023-07-03 12:06] VITALS: BP 162/81; PULSE 69
== END 2023-07-03 12:05 | disposition home or self-care (01) ==
LOC: ORWHC2ENDO 10:30
PROVIDERS: ATTEND Surgery
DX: Z12.11 Encounter for screening for malignant neoplasm of colon (principal); K63.5 Polyp of colon; K57.30 Diverticulosis of large intestine without perforation or abscess without bleeding; K52.9 Noninfective gastroenteritis and colitis, unspecified; J44.9 Chronic obstructive pulmonary disease, unspecified; E11.9 Type 2 diabetes mellitus without complications; I10 Essential (primary) hypertension; E78.5 Hyperlipidemia, unspecified; G89.29 Other chronic pain; Z80.0 Family history of malignant neoplasm of digestive organs; Z87.891 Personal history of nicotine dependence; Z83.3 Family history of diabetes mellitus; Z79.84 Long term (current) use of oral hypoglycemic drugs; Z88.6 Allergy status to analgesic agent; Z79.899 Other long term (current) drug therapy
CPT/HCPCS: 88305; 45380; 45385; J2704